=== PATIENT | male | born 1950 | race Caucasian/White ===

== ENCOUNTER 2017-10-01 18:15 | Emergency (ER) | payer BC ==
[2017-10-01] MEDS ORDERED: Aspirin 81 mg CHEW TAB* 81 MG TAB.CHEW PO ONE (18:46)
[2017-10-01] MEDS ORDERED: Metoprolol Tartrate IV* 1 MG/ML 5 ML VIAL IV ONE (18:47)
[2017-10-01 19:07] LABS: ABS Basophils 0.1 10^3/ul (0-0.2); ABS Eosinophils 0.2 10^3/ul (0-0.6); ABS Monocytes 0.7 10^3/ul (0-0.8); ABS Neutrophils 3.6 10^3/ul (1.5-7.7); ABS Nucleated RBC 0 10^3/ul; Eosinophil % 3.1 % (0-6); Hematocrit 46 % (42-52); Hemoglobin 16.2 g/dl (14.0-18.0); Lymphocyte % 30.2 % (25-47); Mean Corpuscular HGB Conc 35 g/dl (31-36); Mean Corpuscular Hemoglobin 31 pg (27-31); Mean Corpuscular Volume 87 fL (80-94); Mean Platelet Volume 7.8 um3 (7.4-10.4); Nucleated Red Blood Cells % 0; Platelet Count 217 10^3/ul (150-450); Red Cell Distribution Width 12 % (10.5-15); White Blood Count 6.5 10^3/ul (3.5-10.8)
[2017-10-01 19:25] LABS: EGFR Non-African American 80.5 (>60)
--- NOTE | 2017-10-01 19:30 | RAD ---
HISTORY: Chest pain COMPARISONS: May 03, 2016 VIEWS: 2: frontal portable view of the chest at 7:03 PM FINDINGS: LINES AND TUBES: None. CARDIOMEDIASTINAL SILHOUETTE: The cardiomediastinal silhouette is normal for portable technique. PLEURA: The costophrenic angles are sharp. No pleural abnormalities are noted. LUNG PARENCHYMA: The lungs are clear. ABDOMEN: The upper abdomen is clear. There is no subphrenic gas. BONES AND SOFT TISSUES: No bone or soft tissue abnormalities are noted. IMPRESSION: NO ACTIVE CARDIOPULMONARY DISEASE.
--- NOTE | 2017-10-01 21:24 | ED ---
Anju Mcclain Emily, scribed for Damian Rivers MD on 10/01/17 at 1845 . 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 Pt reports the CP beginning upon receiving stressful news. The patient rates the pain 0/10 in severity. Symptoms aggravated by nothing. Symptoms alleviated by nothing. Patient reports feeling flushed. Patient denies SOB and palpitations. Pt has a history of IN. - History of Current Complaint Chief Complaint: EDChestPainROMI Time Seen by Provider: 10/01/17 18:31 Hx Obtained From: Patient Onset/Duration: Started Hours Ago, Still Present Timing: Constant Initial Severity: Mild Current Severity: None Pain Intensity: 0 Pain Scale Used: 0-10 Numeric Chest Pain Location: Diffuse Chest Pain Radiates: No Aggravating Factor(s): Nothing Alleviating Factor(s): Nothing Associated Signs and Symptoms: Positive: Other: - Positive feeling flushed. Negative SOB and palpitations - Additional Pertinent History Primary Care Physician: [id number] - Allergy/Home Medications Allergies/Adverse Reactions: Allergies Allergy/AdvReac Type Severity Reaction Status Date / Time No Known Allergies Allergy Verified 05/03/16 08:21 PMH/Surg Hx/FS Hx/Imm Hx Previously Healthy: No Endocrine/Hematology History: Denies: Hx Diabetes, Hx Thyroid Disease Cardiovascular History: Reports: Hx Hypercholesterolemia, Hx Hypertension Respiratory History: Reports: Other Respiratory Problems/Disorders - ex-smoker Denies: Hx Asthma, Hx Chronic Obstructive Pulmonary Disease (COPD) GI History: Reports: Other GI Disorders - bilharzia infection , inguinal hernia repairs Denies: Hx Ulcer Sensory History: Reports: Hx Contacts or Glasses Opthamlomology History: Reports: Hx Contacts or Glasses - Surgical History Surgery Procedure, Year, and Place: 10/29 [facility], 03/05 [facility] inguinal her[place] repair, 12/08 [facility]opsy Infectious Disease History: Yes Infectious Disease History: Reports: History Other Infectious Disease - malaria/ bilharzia infection , bacterial meningitis 1991 Denies: Hx Clostridium Difficile, Hx Hepatitis, Hx Human Immunodeficiency Virus (HIV), Hx of Known/Suspected MRSA, Hx Shingles, Hx Tuberculosis, Traveled Outside the [place] in Last 30 Days - Family History Known Family History: Positive: Diabetes, Other - Positive stroke and [place] - Social History Occupation: Employed Full-time Lives: With Family Alcohol Use: Rare Substance Use Type: Reports: None Hx Tobacco Use: No Smoking Status (MU): Former Smoker Review of Systems Positive: Chest Pain. Negative: Palpitations Negative: Shortness Of Breath Positive: Other - Positive feeling flushed All Other Systems Reviewed And Are Negative: Yes Physical Exam - Summary Physical Exam Summary: Appearance: Well appearing, no pain distress Skin: warm, dry, reflects adequate perfusion Head/face: normal Eyes: EOMI, SHAMEKA ENT: normal Neck: supple, non-tender Respiratory: CTA, breath sounds present Cardiovascular: RRR, pulses symmetrical, blood pressure is slightly elevated Abdomen: non-tender, soft Bowel Sounds: present Musculoskeletal: normal, strength/ROM intact Neuro: normal, sensory motor intact, A&Ox3 Triage Information Reviewed: Yes Vital Signs On Initial Exam: Initial Vitals Temp Pulse Resp BP Pulse Ox 98.4 F 79 20 144/71 98 10/01/17 18:18 10/01/17 18:18 10/01/17 18:18 10/01/17 18:18 10/01/17 18:18 Vital Signs Reviewed: Yes Diagnostics - Vital Signs Vital Signs Temp Pulse Resp BP Pulse Ox 10/01/17 18:18 98.4 F 79 20 144/71 98 - Laboratory Lab Results: Lab Results 10/01/17 10/01/17 10/01/17 Range/Units 18:57 18:57 18:57 WBC 6.5 (3.5-10.8) 10^3/ul RBC 5.30 (4.0-5.4) 10^6/ul Hgb 16.2 (14.0-18.0) g/dl Hct 46 (42-52) % MCV 87 (80-94) fL MCH 31 (27-31) pg MCHC 35 (31-36) g/dl RDW 12 (10.5-15) % Plt Count 217 (150-450) 10^3/ul MPV 7.8 (7.4-10.4) um3 Neut % (Auto) 55.3 (38-83) % Lymph % (Auto) 30.2 (25-47) % Gilliam % (Auto) 10.1 H (0-7) % Eos % (Auto) 3.1 (0-6) % Baso % (Auto) 1.3 (0-2) % Absolute Neuts (auto) 3.6 (1.5-7.7) 10^3/ul Absolute Lymphs (auto) 2.0 (1.0-4.8) 10^3/ul Absolute Monos (auto) 0.7 (0-0.8) 10^3/ul Absolute Eos (auto) 0.2 (0-0.6) 10^3/ul Absolute Basos (auto) 0.1 (0-0.2) 10^3/ul Absolute Nucleated RBC 0 10^3/ul Nucleated RBC % 0 Sodium (139-145) mmol/L Potassium (3.5-5.0) mmol/L Chloride (101-111) mmol/L Carbon Dioxide (22-32) mmol/L Anion Gap (2-11) mmol/L BUN (6-24) mg/dL Creatinine (0.67-1.17) mg/dL Est GFR ( Amer) (>60) Est GFR (Non-Af Amer) (>60) BUN/Creatinine Ratio (8-20) Glucose (70-100) mg/dL Lactic Acid 0.8 (0.5-2.0) mmol/L Calcium (8.6-10.3) mg/dL Total Bilirubin (0.2-1.0) mg/dL AST (13-39) U/L ALT (7-52) U/L Alkaline Phosphatase (34-104) U/L Troponin I (<0.04) ng/mL B-Natriuretic Peptide 12 ( - 100) pg/mL Total Protein (6.4-8.9) g/dL Albumin (3.2-5.2) g/dL Globulin (2-4) g/dL Albumin/Globulin Ratio (1-3) 10/01/17 10/01/17 Range/Units 18:59 20:54 WBC (3.5-10.8) 10^3/ul RBC (4.0-5.4) 10^6/ul Hgb (14.0-18.0) g/dl Hct (42-52) % MCV (80-94) fL MCH (27-31) pg MCHC (31-36) g/dl RDW (10.5-15) % Plt Count (150-450) 10^3/ul MPV (7.4-10.4) um3 Neut % (Auto) (38-83) % Lymph % (Auto) (25-47) % Gilliam % (Auto) (0-7) % Eos % (Auto) (0-6) % Baso % (Auto) (0-2) % Absolute Neuts (auto) (1.5-7.7) 10^3/ul Absolute Lymphs (auto) (1.0-4.8) 10^3/ul Absolute Monos (auto) (0-0.8) 10^3/ul Absolute Eos (auto) (0-0.6) 10^3/ul Absolute Basos (auto) (0-0.2) 10^3/ul Absolute Nucleated RBC 10^3/ul Nucleated RBC % Sodium 137 L (139-145) mmol/L Potassium 3.7 (3.5-5.0) mmol/L Chloride 105 (101-111) mmol/L Carbon Dioxide 24 (22-32) mmol/L Anion Gap 8 (2-11) mmol/L BUN 21 (6-24) mg/dL Creatinine 0.94 (0.67-1.17) mg/dL Est GFR ( Amer) 103.6 (>60) Est GFR (Non-Af Amer) 80.5 (>60) BUN/Creatinine Ratio 22.3 H (8-20) Glucose 130 H (70-100) mg/dL Lactic Acid (0.5-2.0) mmol/L Calcium 9.2 (8.6-10.3) mg/dL Total Bilirubin 0.80 (0.2-1.0) mg/dL AST 10 L (13-39) U/L ALT 18 (7-52) U/L Alkaline Phosphatase 69 (34-104) U/L Troponin I 0.00 0.00 (<0.04) ng/mL B-Natriuretic Peptide ( - 100) pg/mL Total Protein 6.5 (6.4-8.9) g/dL Albumin 4.3 (3.2-5.2) g/dL Globulin 2.2 (2-4) g/dL Albumin/Globulin Ratio 2.0 (1-3) Result Diagrams: 10/01/17 18:57 10/01/17 18:59 Lab Statement: Any lab studies that have been ordered have been reviewed, and results considered in the medical decision making process. - Radiology CXR Radiology Interpretation Completed By: Radiologist - CXR reveals, per radiologist, no active cardiopulmonary disease. ED physician has reviewed this radiology report. - EKG 1825 Cardiac Rate: NL EKG Rhythm: Sinus Rhythm - [address] Segment: Normal EKG Interpretation: Nml axis intervals Re-Evaluation - Re-Evaluation First Eval Re-Evaluation Time: 21:21 Change: Unchanged Comment: Discussed plan of care with patient. Chest Pain Course/Dx - Course Course Of Treatment: Dr. Whittington (sheep farm manager) called ahead for pt and requested 2 troponins at 1545. Troponin 2 has been 0 each time. And has had no recurrence of chest pain. His nitroglycerin was filled. He was discharged to follow-up with his sheep farm manager. - Chest Pain Differential Diagnosis/HQI/PQRI: Acute [place], ACS, Chest Wall, Lower Respiratory Infection, Other: - Anxiety - Diagnoses Provider Diagnoses: Chest pain, Anxiety, Angina at rest Discharge - Sign-Out/Discharge Documenting (check all that apply): Discharge/Admit/Transfer - Discharge home - Discharge Plan Condition: Good Disposition: HOME Prescriptions: Nitroglycerin TAB 0.4 MG* 0.4 mg SL . NEEDED PRN #1 bottle PRN Reason: Angina Patient Education Materials: Angina (DC), Chest Pain (ED) Referrals: David Granados MD [Primary Care Provider] - Marisol Whittington MD [Medical Doctor] - Additional Instructions: Continue all your medications. Nitroglycerin has been filled and your pharmacy. Call your sheep farm manager on Wednesday to follow-up. They may want to do a stress test. Return immediately with chest pain at rest, unremitting chest pain, worse, new symptoms or other concerns as discussed. - Billing Disposition and Condition Condition: GOOD Disposition: HOME The documentation as recorded by the Anju torres Emily accurately reflects the service I personally performed and the decisions made by me, Damian Rivers MD.
[2017-10-01 21:46] VITALS: BP 124/85
== END 2017-10-01 21:47 | disposition home or self-care (01) ==
LOC: ED 18:15
DX: R07.9 Chest pain, unspecified (principal); Z87.891 Personal history of nicotine dependence; F41.9 Anxiety disorder, unspecified; I20.9 Angina pectoris, unspecified
CPT/HCPCS: 36415; 71045; 80053; 83605; 83880; 84484; 85025; 93005; 96374; 99283; A9270-GY; J3490

== ENCOUNTER → 2018-11-10 10:25 | Emergency (ER) | payer BC ==
[~2018-11-10 10:25] MED LIST: Tetan/Diph/Pertus SYR(Tdap)* 0.5 ML SYR(BOOSTRIX) use SYR IM ONE; ceFAZolin 1 GM ADVAN(*) 1 GM in NS 0.9% 50 ML* 50 ML IVPB ONE
--- NOTE | 2018-11-10 10:56 | ED ---
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 Patient states he was working on his boat when his finger got caught in a stiven. Patient unaware of his last tetanus immunization. Brilinta and aspirin daily. Symptoms are mild to moderate in severity. No current modifying factors. Right is pt.'s nondominant hand. - History of Current Complaint Chief Complaint: EDExtremityUpper Stated Complaint: RT INDEX FINGER LAC PER PT Time Seen by Provider: 11/10/18 10:42 - Allergies/Home Medications Allergies/Adverse Reactions: Allergies Allergy/AdvReac Type Severity Reaction Status Date / Time No Known Allergies Allergy Verified 11/10/18 10:35 Home Medications: Home Medications Multivitamins/Minerals TAB* [Theragran/minerals TAB*] 1 tab PO DAILY 11/10/18 [ History Confirmed 11/10/18] Ticagrelor* [Brilinta 90 MG*] 90 mg PO BID 11/10/18 [History Confirmed 11/10/18] PMH/Surg Hx/FS Hx/Imm Hx Previously Healthy: Yes Endocrine/Hematology History: Denies: Hx Diabetes, Hx Thyroid Disease Cardiovascular History: Reports: Hx Hypercholesterolemia, Hx Hypertension Respiratory History: Reports: Other Respiratory Problems/Disorders - ex-smoker Denies: Hx Asthma, Hx Chronic Obstructive Pulmonary Disease (COPD) GI History: Reports: Other GI Disorders - bilharzia infection , inguinal hernia repairs Denies: Hx Ulcer Sensory History: Reports: Hx Contacts or Glasses Opthamlomology History: Reports: Hx Contacts or Glasses - Surgical History Surgery Procedure, Year, and Place[place] [facility] [place], [place] [facility] [place] [facility] [place] Infectious Disease History: No Infectious Disease History: Reports: History Other Infectious Disease - malaria/ bilharzia infection , bacterial meningitis 1991 Denies: Hx Clostridium Difficile, Hx Hepatitis, Hx Human Immunodeficiency Virus (HIV), Hx of Known/Suspected MRSA, Hx Shingles, Hx Tuberculosis, Traveled Outside the [place] in Last 30 Days - Family History Known Family History: Positive: Diabetes, Other - Positive stroke and [place] - Social History Alcohol Use: Rare Substance Use Type: Reports: None Hx Tobacco Use: No Smoking Status (MU): Former Smoker Review of Systems Positive: Other - distal amputation 2nd digit right hand. Positive: Numbness All Other Systems Reviewed And Are Negative: Yes Physical Exam Triage Information Reviewed: Yes Vital Signs On Initial Exam: Initial Vitals Temp Pulse Resp BP Pulse Ox 98.1 F 97 20 128/85 94 11/10/18 10:30 11/10/18 10:30 11/10/18 10:30 11/10/18 10:30 11/10/18 10:30 Vital Signs Reviewed: Yes Appearance: Positive: Well-Appearing - Pt. sitting up in bed in NAD. Family present. Skin: Positive: Warm, Dry Eyes: Positive: Normal, EOMI, SHAMEKA Neck: Positive: Supple Musculoskeletal: Positive: Other - Amputation noted to right 2nd digit just distal to the DIP joint. Mild active bleeding. Tissue is very macerated. Bone is exposed. Neurological: Positive: Normal, CN Intact II-III Psychiatric: Positive: Affect/Mood Appropriate Diagnostics - Vital Signs Vital Signs Temp Pulse Resp BP Pulse Ox 11/10/18 10:30 98.1 F 97 20 128/85 94 - Laboratory Lab Statement: Any lab studies that have been ordered have been reviewed, and results considered in the medical decision making process. Course/Dx - Course Course Of Treatment: Patient presenting with traumatic amputation of right second digit of hand. Wound is dirty. Wound was irrigated and soaked in Betadine solution. Tetanus is updated. Patient was given 1 g IV Ancef prophylactically. Finger x-ray shows ambutation just distally to the DIP joint. Patient declines pain medication or digital block. Case discussed with on-call orthopedics, Dr. Linares, who agrees with current management and recommends outpatient follow-up with hand. I called and spoke with orthopedic clinic and Dr. Arechiga will see pt. in office at 1300 today for definitive treatment. Wound was extensively irrigated. Wound Mildly bleeding and Gelfoam was placed with a pressure dressing with hemostasis. Patient discharged with his to follow-up in orthopedic clinic at 1300. Prescription was sent for Keflex. Patient understands and agrees plan. - Diagnoses Differential Diagnosis/HQI/PQRI: Positive: Fracture (Open) Provider Diagnoses: Finger amputation, traumatic Discharge - Sign-Out/Discharge Documenting (check all that apply): Patient Departure Patient Received Moderate/Deep Sedation with Procedure: No - Discharge Plan Condition: Good Disposition: HOME Prescriptions: Cephalexin CAP* [Keflex CAP*] 500 mg PO BID #20 cap Patient Education Materials: Finger Amputation (ED) Referrals: Chau Keller MD [Medical Doctor] - Additional Instructions: Dr. Keller will see you in the orthopedic office today, 11/10/18, at 1:00pm - Billing Disposition and Condition Condition: GOOD Disposition: Home
[2018-11-10 12:34] VITALS: BP 133/87
== END | disposition home or self-care (01) ==
LOC: ED 10:25
DX: S68.110A Complete traumatic metacarpophalangeal amputation of right index finger, initial encounter (principal); W24.0XXA Contact with lifting devices, not elsewhere classified, initial encounter; Y92.9 Unspecified place or not applicable; Z23 Encounter for immunization; Z79.02 Long term (current) use of antithrombotics/antiplatelets; Z79.82 Long term (current) use of aspirin; Z87.891 Personal history of nicotine dependence
CPT/HCPCS: 73140; 90471; 90715; 96365; 99282; J0690

== ENCOUNTER 2018-11-10 17:29 | Emergency (ER) | payer BC ==
--- OUTSIDE RECORDS SUMMARY | 2018-11-10 18:21 | XMS REPORT | Continuity of Care Document ---
:1950 External Reference #:[id number] Author Name Sanaz Cordova Care Team Providers Name Role Phone Ana Lenz M.D. Primary Care Physician Unavailable Payers Date Identification Numbers Payment Provider Subscriber Effective: 2012 Policy Number: [id number] BS [employer]ets Esperanza Sears PayID: [id number] [facility] [address] HERI Thomas [address] Effective: 2010 Policy Number: [id number] BS Of KATRINA Sears Expires: 2012 PayID: [id number] [facility] HERI Thomas [address] Expires: 2010 Policy Number: [id number] BS Of KATRINA Sears Group Number: [id number] [facility] [place]ID: [id number] [place] [address] Problems Active Problems Provider Date Type II diabetes mellitus uncontrolled David Granados, Onset: 04/05/2007 Candie,HORTENCIA Pure hypercholesterolemia David Granados, Onset: 07/07/2010 Candie,GREGGP Obstructive sleep apnea syndrome David Granados, Onset: 10/19/2012 CandieFACP H/O: meningitis David Granados, Onset: 11/07/2014 Candie,FACP Coronary arteriosclerosis David Granados, Onset: 05/12/2016 Candie,FACP Essential hypertension Juan Hyde M.D., FACC, Onset: 05/13/2016 [facility] Electrocardiogram abnormal Marisol Whittington M.D. Onset: 10/01/2017 Atherosclerotic heart disease of [place] Marisol Whittington M.D. Onset: 10/01/2017 coronary artery with unspecified angina pectoris Mixed hyperlipidemia Marisol Whittington M.D. 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 Keller MD Onset: 11/10/2018 complication Inactive Problems Hyperlipidemia Juan Hyde M.D., [facility] Onset: 05/13/2016 Inactive: 12/07/2016 Family History Date Family Member(s) Observation Comments Father Diabetes, Non Insulin Dependent : (age 75 Father due to [place] Years) Father Stroke Mother due to Cancer, () - melanoma Skin Siblings 2 First Brother Stroke First Brother Heart Disease Maternal Uncles Heart Disease Social History Type Date Description Comments Sex Unknown Marital Status 4 Kids Marital Status Lives With Family 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 Tobacco Use Start: Unknown End: Former Cigarette Smoker Unknown Cigarette Use Quit - Age 32 after 8 yrs ETOH Use 07/01/2017 Rarely consumes alcohol Recreational Drug Use Denies Drug Use Tobacco Use Start: Unknown End: Patient is a former smoker Unknown Smoking Status Reviewed: 11/10/18 Patient is a former smoker Exercise Type/Frequency Exercises regularly Allergies, Adverse Reactions, Alerts Description No Known Drug Allergies Medications Active Medications SIG Qnty Indications Ordering Date Provider Oxycodone-Acetaminop 1 tab by mouth every 20tabs Chau Keller, 11/10/2018 hen 4-6 hours as needed 5-325mg Tablets pain Shingrix 0.5 milliliters 2units David Gutierrez 12/15/2017 50mcg intramuscular now [place], Suspension Rec and 2-3 months later GREGG SchreiberP repeat Amlodipine Besylate 1 by mouth every day 90tabs Marisol Whittington, 10/27/2017 MLibertyDLiberty 5mg Tablets Brilinta 1 tab by mouth twice 180tabs Marisol Whittington, 06/01/2017 60mg Tablets a day M.DLiberty Atorvastatin Calcium take 1 tablet at 90tabs Marisol Whittington, 12/07/2016 bedtime M.Matt 40mg Tablets Naproxen Sodium 1 as needed David Gutierrez 08/19/2016 220mg [place], Tablets M.D.,FACP Onetouch Verio 1 kit as directed 1units David Gutierrez 05/12/2016 [place], w/Device Kit M.D.,FACP Onetouch Verio test twice a day as 100units E11.8 David Gutierrez 05/12/2016 needed [place], Strips M.DLiberty,FACP Lancets Super Thin bid prn 100units David Gutierrez 05/12/2016 28G [place], Thin 28G Misc M.D.,FACP Metoprolol Succinate take one tablet by 30tabs Ana Lenz, 05/05/2016 ER mouth once daily as MD 25mg Tablets ER directed 24HR Janumet take one tablet by 60tabs E11.65 Ana Lenz, 05/05/2016 50-500mg mouth twice a day MD Tablets Nitroglycerin 1 sl q5mins x3 as Marisol Whittington, 05/05/2016 0.4mg needed for chest M.D. Tablets Sub pain (esophageal) Multivitamin Adult 1 by mouth every day 90tabs Other Ordering 05/05/2016 Provider Tablets Invokana Take One Tablet By 90tabs Ana Lenz, 08/09/2013 100mg Mouth Once Daily MD Tablets Cpap auto-adjust, goes to David Gutierrez 05/29/2013 8 cm Candie Granados,FACP Aspirin 1 po qd E11.65 David Gutierrez 08/31/2008 81mg Tablets Candie Granados,FACP Vitamin C 1 by mouth every day Unknown 1000mg Tablets History Medications Amlodipine Besylate 1 by mouth every 30tabs Curtis Dietz 09/16/2016 - day Candie Reyes 10/26/2017 2.5mg Tablets Lisinopril 1 by mouth every 30tabs E11.65 David Gutierrez 05/05/2016 - 5mg Tablets evening Candie Granados,FACP 05/12/2016 Brilinta 1 tab by mouth 180tabs Marisol Whittington, 05/05/2016 - 90mg Tablets twice a day M.D. 06/01/2017 Atorvastatin Calcium take one tablet 90tabs David Gutierrez 05/05/2016 - by mouth once Candie Granados,[facility] 12/07/2016 80mg Tablets daily Janumet take one tablet 180tabs E11.65 David Gutierrez 09/17/2015 - 50-1000mg by mouth twice a Candie Granados,[facility] 05/08/2016 Tablets day Amoxicillin 1 by mouth twice 14tabs J06.9 [place] Mojica, HORACE 04/23/2015 - 875mg a day 06/18/2015 Tablets Viagra 1 by mouth as 14tabs N52.1 David Gutierrez 11/07/2014 - 50mg Tablets needed Candie Granados,[facility] 05/08/2016 Lisinopril take one tablet 90tabs E11.65 David Gutierrez 03/22/2014 - 10mg Tablets by mouth once Candie Granados,[facility] 05/08/2016 daily Metoprolol Succinate 1 by mouth every 30tabs 794.39 Marisol Whittington, 2013 - ER day Candie 03/22/2014 25mg Tablets ER 24HR Lisinopril Take One Tablet 90tabs 250.02 David Gutierrez 05/29/2013 - 5mg Tablets By Mouth Once Candie Granados,[facility] 03/22/2014 Daily Cheratussin ac 5-10 ml po q4-6h 236ml 466.0 Jocelyn Del Angel, 06/14/2012 - prn N.P. 10/19/2012 100-10mg/5ML Syrup Ventolin HFA 2 puffs po qid 1units 466.0 Jocelyn Del Angel, 06/14/2012 - prn N.P. 10/19/2012 108(90Base) mcg/ac Aerosol Tessalon Perles 100 mg po tid prn 100mg 466.0 Jocelyn Del Angel, 06/14/2012 - 100mg N.P. 10/19/2012 Capsules Ramipril 1 po qd 30caps 401.1 David Gutierrez 04/14/2012 - 2.5mg Capsules Candie Granados,[facility] 10/19/2012 Janumet XR take two tablets 180tabs E11.65 David Gutierrez 10/09/2011 - 50-1000mg by mouth every Candie Granados,[facility] 09/17/2015 Tablets ER 24HR day Janumet 1 po qd (Janumet 30tabs 250.02 David Gutierrez 07/10/2011 - 50-1000mg XR) Candie Granados,[facility] 10/09/2011 Tablets Prednisone 6 tabx 42tabs 692.6 [place] 10/01/2010 - 10mg Tablets 2days,5tabx Candie Zayas 12/19/2010 2days,4 [id number],2tabx2 days,1tabxday. Fortamet take 1 tablet by 90tabs 250.02 David Gutierrez 09/03/2010 - 1000mg Tablets mouth once a day Candie Granados,[facility] 07/10/2011 ER 24HR Ciprodex otic 1bottle 380.22 David Gutierrez 09/03/2010 - 0.3-0.1% 4 ggt r ear bid Candie Granados,[facility] 12/19/2010 Suspension for 1 wk Metformin 1 po bid 60units 250.02 David Gutierrez 06/05/2010 - 500mg Candie Granados,[facility] 09/03/2010 Ciprofloxacin HCL 1 bid x 7 days 14tabs 599.0 David Gutierrez 06/05/2010 - 250mg Candie Granados,[facility] 07/07/2010 Tablets Nystatin topically bid prn 30g 599.0 David Gutierrez 06/05/2010 - [id number]/GM Candie Granados,[facility] 07/07/2010 Cream Red Contour Blood qd and prn 50units David Gutierrez 06/05/2010 - Glucose Test Strips Candie Granados,[facility] 05/12/2016 Strips Red Microlet qd prn 50units David Gutierrez 06/05/2010 - Lancets Candie Granados,[facility] 05/12/2016 Mis Asmanex 14 Metered qd samples 1month 786.2 David Gutierrez 11/01/2009 - Doses [facility] 12/18/2009 220mcg/Inh Aerosol Ambien prn rarely David Gutierrez 04/05/2007 - 5mg Tablets Candie Granados,FACP 10/09/2011 Cinnamon 4 po qd Unknown - 500mg Capsules 05/08/2016 Vitamin C 3 po qd Unknown - 500mg 11/09/2013 Chewtabs Calcium 1200 1 daily Unknown - Chewtabs 05/31/2017 Influenza Virus Unknown Vaccine Injection Medications Administered in Office Medication SIG Qnty Indications Ordering Provider Date Technetium TC 99M Dez Brooks, DO FACC 09/08/2016 Tetrofosmin, Per Unit Dose Up To 40 Millicuries Injection Immunizations CPT Code Status Date Vaccine Reaction Lot # [id number] Given 07/01/2017 Pneumonia Vaccine no reaction [id number] Given 03/01/2017 Fluzone High Dose 77425 Given 02/29/2016 Influ Virus Vaccine, Quadrivalent, [place], [place] [id number] Given 02/28/2015 Flu Vaccine Split Virus Preservative Free For Indiv 3Yr Older [id number] Given 11/07/2014 Pneumococcal Conjugate Vaccine 13 [id number] Valent For Intramuscular Use [id number] Given 03/07/2014 Afluria Vaccine [id number] Given 03/09/2013 Flu Vaccine Split Virus Preservative Free For Indiv 3Yr Older [id number] Given 04/14/2012 Fluvirin Im 3Yrs And Older [id number] 62418 Given 04/14/2012 Zoster (Zostavax) [id number] 64150 Given 07/10/2011 Influenza Virus 3Yrs & Over [id number] 70156 Given 12/19/2010 Pneumonia Vaccine [id number] 52774 Given 12/19/2010 Tdap - Tetanus/Diptheria/Acellular [id number] Pertussis 54875 Given 06/05/2010 Influenza Virus 3Yrs & Over [id number] 14914 Given 04/05/2007 Influenza Virus 3Yrs & Over [id number] Vital Signs Date Vital Result Comment 11/10/2018 1:17pm Height 72 inches 6'0" Heart Rate 91 /min BP Systolic 130 mmHg BP Diastolic 70 mmHg Body Temperature 98.2 F Pain Level 8 08/11/2018 3:35pm Height 72 inches 6'0" Weight 210.00 lb no shoes Heart Rate 76 /min BP Systolic Sitting 110 mmHg lue reg cuff BP Diastolic Sitting 64 mmHg lue reg cuff BP Systolic Standing 112 mmHg lue reg cuff BP Diastolic Standing 64 mmHg lue reg cuff Respiratory Rate 18 /min BMI (Body Mass Index) 28.5 kg/m2 Ejection Fraction 55-60% echo. 05/03/16 07/04/2018 10:02am Height 72 inches 6'0" Weight 213.12 lb Heart Rate 71 /min BP Systolic Sitting 122 mmHg large adult cuff left arm BP Diastolic Sitting 78 mmHg large adult cuff left arm Respiratory Rate 20 /min O2 % BldC Oximetry 95 % at rest on room air BMI (Body Mass Index) 28.9 kg/m2 12/15/2017 10:08am Height 72 inches 6'0" Weight 204.38 lb Heart Rate 78 /min BP Systolic Sitting 120 mmHg BP Diastolic Sitting 78 mmHg Body Temperature 97.4 F O2 % BldC Oximetry 98 % BMI (Body Mass Index) 27.7 kg/m2 10/01/2017 4:24pm Height 72 inches 6'0" Weight 208.00 lb w/o shoes Heart Rate 86 /min BP Systolic Sitting 156 mmHg Lue, reg cuff BP Diastolic Sitting 80 mmHg Lue, reg cuff BP Systolic Standing 148 mmHg Lue BP Diastolic Standing 86 mmHg Lue Respiratory Rate 16 /min Pain Level 4 BMI (Body Mass Index) 28.2 kg/m2 Ejection Fraction 55-60% as of 2015 echo 07/01/2017 11:21am Height 72 inches 6'0" Weight 206.00 lb Heart Rate 81 /min BP Systolic Sitting 120 mmHg BP Diastolic Sitting 58 mmHg Body Temperature 97.0 F O2 % BldC Oximetry 96 % BMI (Body Mass Index) 27.9 kg/m2 06/01/2017 11:13am Height 73 inches 6'1" Weight 210.75 lb Heart Rate 68 /min BP Systolic Sitting 124 mmHg Lue large cuff BP Diastolic Sitting 72 mmHg Lue large cuff BP Systolic Standing 118 mmHg Lue BP Diastolic Standing 70 mmHg Lue Respiratory Rate 16 /min BMI (Body Mass Index) 27.8 kg/m2 Ejection Fraction 55-60% 05/03/16 01/15/2017 3:27pm Height 73 inches 6'1" Weight 209.00 lb Heart Rate 67 /min BP Systolic 126 mmHg BP Diastolic 74 mmHg Body Temperature 97.7 F O2 % BldC Oximetry 96 % BMI (Body Mass Index) 27.6 kg/m2 12/17/2016 1:23pm Height 73 inches 6'1" Weight 203.00 lb no shoes Heart Rate 74 /min BP Systolic Sitting 116 mmHg Lue reg cuff BP Diastolic Sitting 72 mmHg Lue reg cuff BP Systolic Standing 110 mmHg Lue reg cuff BP Diastolic Standing 70 mmHg Lue reg cuff Respiratory Rate 16 /min BMI (Body Mass Index) 26.8 kg/m2 12/07/2016 1:32pm Weight 210.00 lb Heart Rate 80 /min BP Systolic 124 mmHg BP Diastolic 60 mmHg Body Temperature 97.8 F O2 % BldC Oximetry 98 % 10/13/2016 3:26pm Weight 204.00 lb with shoes Heart Rate 76 /min BP Systolic Sitting 118 mmHg Rue reg cuff BP Diastolic Sitting 70 mmHg Rue reg cuff BP Systolic Standing 126 mmHg Rue reg cuff BP Diastolic Standing 70 mmHg Rue reg cuff Respiratory Rate 16 /min 08/18/2016 2:42pm Weight 203.00 lb Heart Rate 65 /min BP Systolic Sitting 108 mmHg BP Diastolic Sitting 68 mmHg Body Temperature 97.9 F Pain Level 8 L shoulder O2 % BldC Oximetry 95 % 06/19/2016 3:58pm Height 73 inches 6'1" Weight 204.00 lb no shoes Heart Rate 72 /min BP Systolic Sitting 126 mmHg Lue reg cuff BP Diastolic Sitting 76 mmHg Lue reg cuff BP Systolic Standing 124 mmHg Lue reg cuff BP Diastolic Standing 80 mmHg Lue reg cuff Respiratory Rate 16 /min BMI (Body Mass Index) 26.9 kg/m2 Ejection Fraction 55-60% 05/03/2016 05/13/2016 1:35pm Height 73 inches 6'1" Weight 208.00 lb Heart Rate 80 /min 86 BP Systolic Sitting 120 mmHg left arm, reg cuff BP Diastolic Sitting 66 mmHg left arm, reg cuff BP Systolic Standing 116 mmHg left arm, reg cuff BP Diastolic Standing 66 mmHg left arm, reg cuff Respiratory Rate 16 /min BMI (Body Mass Index) 27.4 kg/m2 Ejection Fraction 55-60% 05/03/16 05/12/2016 3:56pm Weight 208.00 lb with shoes Heart Rate 78 /min BP Systolic Sitting 122 mmHg BP Diastolic Sitting 72 mmHg O2 % BldC Oximetry 98 % 01/07/2016 1:29pm Height 73 inches 6'1" Weight 208.00 lb Heart Rate 88 /min BP Systolic Sitting 124 mmHg BP Diastolic Sitting 68 mmHg Respiratory Rate 15 /min Body Temperature 97.0 F O2 % BldC Oximetry 98 % BMI (Body Mass Index) 27.4 kg/m2 09/17/2015 8:30am Height 73 inches 6'1" Weight 211.00 lb Heart Rate 78 /min BP Systolic Sitting 130 mmHg BP Diastolic Sitting 70 mmHg Respiratory Rate 15 /min Body Temperature 97.1 F O2 % BldC Oximetry 98 % BMI (Body Mass Index) 27.8 kg/m2 06/18/2015 8:10am Height 73 inches 6'1" Weight 213.00 lb Heart Rate 88 /min BP Systolic Sitting 124 mmHg BP Diastolic Sitting 76 mmHg Respiratory Rate 14 /min Body Temperature 98.0 F O2 % BldC Oximetry 98 % BMI (Body Mass Index) 28.1 kg/m2 04/23/2015 11:43am Height 73 inches 6'1" Weight 208.00 lb Heart Rate 77 /min BP Systolic 122 mmHg BP Diastolic 78 mmHg Body Temperature 9.7 F O2 % BldC Oximetry 98 % BMI (Body Mass Index) 27.4 kg/m2 04/23/2015 11:28am Height 73 inches 6'1" 11/07/2014 8:50am Height 73 inches 6'1" Weight 210.62 lb Heart Rate 80 /min BP Systolic Sitting 125 mmHg BP Diastolic Sitting 68 mmHg Body Temperature 97.2 F O2 % BldC Oximetry 97 % BMI (Body Mass Index) 27.8 kg/m2 03/22/2014 4:08pm Height 73 inches 6'1" Weight 210.00 lb Heart Rate 74 /min BP Systolic Sitting 120 mmHg BP Diastolic Sitting 78 mmHg Body Temperature 96.0 F O2 % BldC Oximetry 95 % BMI (Body Mass Index) 27.7 kg/m2 01/16/2014 1:35pm Height 73 inches 6'1" Weight 212.00 lb Heart Rate 78 /min BP Systolic Sitting 152 mmHg left arm, reg cuff BP Diastolic Sitting 70 mmHg left arm, reg cuff BP Systolic Standing 138 mmHg left arm, reg cuff BP Diastolic Standing 68 mmHg left arm, reg cuff Respiratory Rate 16 /min BMI (Body Mass Index) 28.0 kg/m2 11/09/2013 8:38am Weight 207.00 lb Heart Rate 82 /min BP Systolic Sitting 125 mmHg BP Diastolic Sitting 80 mmHg Body Temperature 98.1 F 08/09/2013 8:39am Height 73 inches 6'1" Weight 213.50 lb Heart Rate 88 /min BP Systolic Sitting 135 mmHg BP Diastolic Sitting 78 mmHg Body Temperature 97.8 F BMI (Body Mass Index) 28.2 kg/m2 05/29/2013 8:42am Height 73 inches 6'1" Weight 219.00 lb Heart Rate 88 /min BP Systolic Sitting 144 mmHg BP Diastolic Sitting 78 mmHg BMI (Body Mass Index) 28.9 kg/m2 10/19/2012 3:17pm Height 73 inches 6'1" Weight 217.50 lb Heart Rate 94 /min BP Systolic Sitting 128 mmHg BP Diastolic Sitting 64 mmHg BMI (Body Mass Index) 28.7 kg/m2 06/14/2012 4:00pm Height 73 inches 6'1" Weight 217.00 lb Heart Rate 90 /min BP Systolic Sitting 164 mmHg BP Diastolic Sitting 90 mmHg Body Temperature 98.1 F O2 % BldC Oximetry 98 % BMI (Body Mass Index) 28.6 kg/m2 04/14/2012 9:28am Height 73 inches 6'1" Weight 216.00 lb Heart Rate 82 /min BP Systolic Sitting 138 mmHg BP Diastolic Sitting 82 mmHg BMI (Body Mass Index) 28.5 kg/m2 10/09/2011 10:00am Height 73 inches 6'1" Weight 217.00 lb Heart Rate 68 /min BP Systolic Sitting 130 mmHg BP Diastolic Sitting 76 mmHg BMI (Body Mass Index) 28.6 kg/m2 07/10/2011 10:35am Height 73 inches 6'1" Weight 219.00 lb Heart Rate 72 /min BP Systolic Sitting 120 mmHg L BP Diastolic Sitting 78 mmHg L BMI (Body Mass Index) 28.9 kg/m2 12/19/2010 9:26am Height 73 inches 6'1" Weight 214.00 lb Heart Rate 78 /min BP Systolic Sitting 122 mmHg BP Diastolic Sitting 78 mmHg BMI (Body Mass Index) 28.2 kg/m2 10/01/2010 3:52pm Weight 218.00 lb Heart Rate 76 /min BP Systolic Sitting 124 mmHg BP Diastolic Sitting 88 mmHg 09/03/2010 8:46am Weight 219.00 lb Heart Rate 96 /min BP Systolic Sitting 140 mmHg BP Diastolic Sitting 70 mmHg 07/07/2010 8:37am Weight 222.00 lb Heart Rate 84 /min BP Systolic Sitting 128 mmHg BP Diastolic Sitting 68 mmHg 06/05/2010 4:20pm Weight 219.00 lb Heart Rate 68 /min BP Systolic 136 mmHg BP Diastolic 80 mmHg Body Temperature 97.1 F 12/18/2009 2:19pm Weight 221.00 lb Heart Rate 90 /min BP Systolic Sitting 135 mmHg BP Diastolic Sitting 82 mmHg 11/01/2009 2:09pm Weight 218.00 lb Heart Rate 94 /min BP Systolic Sitting 170 mmHg BP Diastolic Sitting 94 mmHg Body Temperature 97.6 F 08/31/2008 3:05pm Weight 220.00 lb Heart Rate 80 /min BP Systolic Sitting 134 mmHg BP Diastolic Sitting 78 mmHg 04/05/2007 3:26pm Height 71 inches 5'11" Weight 215.00 lb Heart Rate 74 /min BP Systolic Sitting 115 mmHg BP Diastolic Sitting 76 mmHg BMI (Body Mass Index) 30.0 kg/m2 Results Test Date Facility Test Result H/L Range Note Urine Microalbumin 08/10/2018 [facility] Ur Microalbumin 16.1 Random (mg/L) [place] [address] [phone] Urine Creatinine 121.75 mg/dL Urine Microalbumin/Creatinine 13.2 N <31 Basic Metabolic Panel 08/10/2018 [facility] Sodium 137 mmol/L N 135-[address] [place] [address] [phone] Potassium 4.4 mmol/L N 3.5-5.0 Chloride 104 mmol/L N 101-111 Co2 Carbon Dioxide 28 mmol/L N 22-32 Anion Gap 5 mmol/L N 2-11 Glucose 264 mg/dL High 70-100 Blood Urea Nitrogen 19 mg/dL N 6-24 Creatinine 0.83 mg/dL N 0.67-1.17 BUN/Creatinine Ratio 22.9 High 8-20 Calcium 9.1 mg/dL N 8.6-10.3 Egfr Non- 92.7 >60 Egfr 112.2 >60 1 Lipid Profile 08/10/2018 [facility] Triglycerides 76 mg/dL 2 (Trig/Chol/HDL) [address] [place] [address] [phone] Cholesterol 95 mg/dL 3 HDL Cholesterol 39.6 mg/dL 4 LDL Cholesterol 40 mg/dL 5 Liver Function 08/10/2018 [facility] Total Protein 6.1 g/dL Low 6.4-8.[address] [place] [address] [phone] Albumin 4.3 g/dL N 3.2-5.2 Globulin 1.8 g/dL Low 2-4 Albumin/Globulin Ratio 2.4 N 1-3 Total Bilirubin 0.90 mg/dL N 0.2-1.0 Direct Bilirubin 0.20 mg/dL High 0.03-0.18 Indirect Bilirubin 0.7 mg/dL N 0.3-1.0 Alkaline Phosphatase 81 U/L N 34-104 Alt 18 U/L N 7-52 Ast 10 U/L Low 13-39 Laboratory test 07/04/2018 [facility] Hemoglobin A1c 8.3 High 5-7 finding Basic Metabolic 10/26/2017 [facility] Sodium 140 mmol/L N 139- [address] [place] [address] [phone] Potassium 4.4 mmol/L N 3.5-5.0 Chloride 109 mmol/L N 101-111 Co2 Carbon Dioxide 24 mmol/L N 22-32 Anion Gap 7 mmol/L N 2-11 Glucose 142 mg/dL High 70-100 Blood Urea Nitrogen 21 mg/dL N 6-24 Creatinine 0.96 mg/dL N 0.67-1.17 BUN/Creatinine Ratio 21.9 High 8-20 Calcium 9.0 mg/dL N 8.6-10.3 Egfr Non- 78.6 >60 Egfr 101.1 >60 6 Laboratory test finding 10/26/2017 [facility] Ast (Sgot) 13 U/L N 13-[address] [place] [address] [phone] Creatine Kinase(CK) 136 U/L N 10-223 CRP High Sensitivity 1.12 mg/L 7 Lipid Profile 10/26/2017 [facility] Triglycerides 50 mg/dL 8 (Trig/Chol/HDL) [address] [place] [address] [phone] Cholesterol 86 mg/dL 9 HDL Cholesterol 36.0 mg/dL 10 LDL Cholesterol 40 mg/dL 11 Urine Microalbumin 10/26/2017 [facility] Ur Microalbumin < 15.[address] (mg/L) mg/[place] [address] [phone] Urine Creatinine 139.50 mg/dL Urine Microalbumin/Creatinine TNP ug/mg <31 12 Laboratory test 10/26/2017 [facility] Hemoglobin A1c 6.9 % High 4.0-5.6 [address] (Glyco HGB) [place] [address] [phone] Laboratory test 10/01/2017 [facility] Troponin-I 0.00 <0.[address] (TnI) ng/[place] [address] [phone] Laboratory test 07/01/2017 [facility] Hemoglobin A1c 7.0 5-7 finding CBC Auto Diff 12/07/2016 [facility] White Blood 7.7 N 3.5- 10.[address] Count 10^3/[place] [address] [phone] Red Blood Count 5.51 10^6/uL High 4.0-5.4 Hemoglobin 17.2 g/dL N 14.0-18.0 Hematocrit 49 % N 42-52 Mean Corpuscular Volume 90 fL N 80-94 Mean Corpuscular Hemoglobin 31 pg N 27-31 Mean Corpuscular HGB Conc 35 g/dL N 31-36 Red Cell Distribution Width 12 % N 10.5-15 Platelet Count 217 10^3/uL N 150-450 Mean Platelet Volume 9 um3 N 7.4-10.4 Abs Neutrophils 4.7 10^3/uL N 1.5-7.7 Abs Lymphocytes 2.0 10^3/uL N 1.0-4.8 Abs Monocytes 0.7 10^3/uL N 0-0.8 Abs Eosinophils 0.2 10^3/uL N 0-0.6 Abs Basophils 0 10^3/uL N 0-0.2 Abs Nucleated RBC 0 10^3/uL N Granulocyte % 61.1 % N 38-83 Lymphocyte % 26.1 % N 25-47 Monocyte % 9.0 % N 1-9 Eosinophil % 3.2 % N 0-6 Basophil % 0.6 % N 0-2 Nucleated Red Blood Cells % 0.1 N Laboratory test 12/07/2016 [facility] D Dimer < 200 N Less [address] Quantitative ng/mL Than [address] [place] [address] [phone] Basic Metabolic 12/07/2016 [facility] Sodium 136 mmol/L N 133- 145 Panel [address] [place] [address] [phone] Potassium 4.0 mmol/L N 3.5-5.0 Chloride 102 mmol/L N 101-111 Co2 Carbon Dioxide 25 mmol/L N 22-32 Anion Gap 9 mmol/L N 2-11 Glucose 186 mg/dL High 70-100 Blood Urea Nitrogen 25 mg/dL High 6-24 Creatinine 0.95 mg/dL N 0.67-1.17 BUN/Creatinine Ratio 26.3 High 8-20 Calcium 9.7 mg/dL N 8.6-10.3 Egfr Non- 79.8 N >60 Egfr 102.6 N >60 15 Laboratory test 12/07/2016 [facility] C Reactive 1.82 mg/L N < 5.00 16 finding [address] [facility] [place] [address] [phone] Hemoglobin A1c (Glyco HGB) 6.7 % High Less than 6.0 17 Lipid Profile 10/09/2016 [facility] Triglycerides 67 mg/dL N 18 (Trig/Chol/HDL) [address] [place] [address] [phone] Cholesterol 89 mg/dL N 19 HDL Cholesterol 39.7 mg/dL N 20 LDL Cholesterol 36 mg/dL N 21 Laboratory test finding 10/09/2016 [facility] Alt (SGPT) 30 U/L N 7-52 22 [address] [place] [address] [phone] Ast (Sgot) 18 U/L N 13-39 23 Laboratory test 08/18/2016 [facility] Hemoglobin A1c 6.3 5-7 finding Basic Metabolic 08/11/2016 [facility] Sodium 138 mmol/L N 133- 145 Panel [address] [place] [address] [phone] Potassium 4.1 mmol/L N 3.5-5.0 Chloride 104 mmol/L N 101-111 Co2 Carbon Dioxide 27 mmol/L N 22-32 Anion Gap 7 mmol/L N 2-11 Glucose 152 mg/dL High 70-100 Blood Urea Nitrogen 20 mg/dL N 6-24 Creatinine 0.91 mg/dL N 0.67-1.17 BUN/Creatinine Ratio 22.0 High 8-20 Calcium 9.3 mg/dL N 8.6-10.3 Egfr Non- 83.9 N >60 Egfr 107.9 N >60 24 Urine Microalbumin 08/11/2016 [facility] Urine Creatinine 132.26 mg/dL N Random [address] [place] [address] [phone] Ur Microalbumin (mg/L) 17.2 mg/L N Urine Microalbumin/Creatinine 13.0 ug/mg N <31 Laboratory test 05/12/2016 [facility] Hemoglobin A1c 7.4 High 5-7 finding Laboratory test 01/07/2016 [facility] Hemoglobin A1c 7.0 5-7 finding Laboratory test 09/17/2015 [facility] Hemoglobin A1c 7.2 High 5-7 finding Laboratory test 06/18/2015 [facility] Hemoglobin A1c 7.9 High 5-7 finding Laboratory test 02/27/2015 [facility] Hemoglobin A1c 9.0 % High Less than [address] (Glyco HGB) 6.0 [place] [address] [phone] Basic Metabolic 02/27/2015 [facility] Sodium 131 Low 133-[address] mmol/[place] [address] [phone] Potassium 4.8 mmol/L N 3.5-5.0 Chloride 98 mmol/L Low 101-111 Co2 Carbon Dioxide 27 mmol/L N 22-32 Anion Gap 6 mmol/L N 2-11 Glucose 225 mg/dL High 70-100 Blood Urea Nitrogen 21 mg/dL N 6-24 Creatinine 0.93 mg/dL N 0.67-1.17 BUN/Creatinine Ratio 22.6 High 8-20 Calcium 9.6 mg/dL N 8.6-10.3 Egfr Non- 82.1 N >60 Egfr 105.5 N >60 26 Lipid Profile 02/27/2015 [facility] Triglycerides 86 mg/dL N 27 (Trig/Chol/HDL) [address] [place] [address] [phone] Cholesterol 157 mg/dL N 28 HDL Cholesterol 40.1 mg/dL N 29 LDL Cholesterol 100 mg/dL N 30 Urine Microalbumin 11/07/2014 [facility] Ur Microalbumin < 5.0 mg/L N Random [address] (mg/L) [place] [address] [phone] Urine Creatinine 53.97 mg/dL N Urine Microalbumin/Creatinine TNP ug/mg N <31 31 Laboratory test 11/07/2014 [facility] Hemoglobin A1c 7.6 High 5-7 finding Laboratory test 03/22/2014 [facility] Hemoglobin A1c 7.2 High 5-7 finding Pre Cath Panel 01/05/2014 [facility] Activated 28.4 seconds N 24.0-36.[address] [place] [address] Time [phone] Basic Metabolic 01/05/2014 [facility] Sodium 135 mmol/L N 133- [address] [place] [address] [phone] Potassium 4.4 mmol/L N 3.7-5.6 Chloride 102 mmol/L N 101-111 Co2 Carbon Dioxide 24 mmol/L N 22-32 Anion Gap 9 mmol/L N 2-11 Glucose 212 mg/dL High 70-100 Blood Urea Nitrogen 24 mg/dL N 6-24 Creatinine 0.96 mg/dL N 0.67-1.17 BUN/Creatinine Ratio 25.0 High 8-20 Calcium 9.5 mg/dL N 8.6-10.3 Egfr Non- 79.6 N >60 Egfr 102.4 N >60 32 CBC Auto Diff 01/05/2014 [facility] White Blood 6.8 10^3/uL N 4.8-10.[address] [place] [address] [phone] Red Blood Count 5.73 10^6/uL High 4.0-5.4 Hemoglobin 17.5 g/dL N 14.0-18.0 Hematocrit 50 % N 42-52 Mean Corpuscular Volume 87 fL N 80-94 Mean Corpuscular Hemoglobin 31 pg N 27-31 Mean Corpuscular HGB Conc 35 g/dL N 31-36 Red Cell Distribution Width 13 % N 10.5-15 Platelet Count 200 10^3/uL N 150-450 Mean Platelet Volume 8 um3 N 7.4-10.4 Abs Neutrophils 4.4 10^3/uL N 1.5-7.7 Abs Lymphocytes 1.7 10^3/uL N 1.0-4.8 Abs Monocytes 0.5 10^3/uL N 0-0.8 Abs Eosinophils 0.2 10^3/uL N 0-0.6 Abs Basophils 0.1 10^3/uL N 0-0.2 Abs Nucleated RBC 0 10^3/uL N Granulocyte % 64.2 % N 38-83 Lymphocyte % 24.3 % Low 25-47 Monocyte % 7.7 % N 1-9 Eosinophil % 2.9 % N 0-6 Basophil % 0.9 % N 0-2 Nucleated Red Blood Cells % 0.1 N Inr/Protime 01/05/2014 [facility] Inr 0.85 N 0.85-1.[address] [place] [address] [phone] Laboratory test 11/09/2013 [facility] Hemoglobin A1c 6.6 5-7 finding Laboratory test 08/09/2013 [facility] Hemoglobin A1c 7.9 High 5-7 finding Basic Metabolic 06/16/2013 [facility] Sodium 133 133-[address] mmol/[place] [address] [phone] Potassium 4.3 mmol/L 3.5-5.0 Chloride 100 mmol/L Low 101-111 Co2 Carbon Dioxide 27.0 mmol/L 22-32 Anion Gap 6.0 mmol/L 2-11 Glucose 206 mg/dL High 70-100 Blood Urea Nitrogen 20 mg/dL 6-24 Creatinine 0.80 mg/dL 0.50-1.40 BUN/Creatinine Ratio 25.0 High 8-20 Calcium 9.3 mg/dL 8.1-9.9 Egfr Non- 98.3 >60 Egfr 126.4 >60 33 Urine Microalbumin 06/16/2013 [facility] Ur Microalbumin 13.0 mg /L [address] (mg/L) [place] [address] [phone] Urine Creatinine 173.2 mg/dL Urine Microalbumin/Creatinine 7.5 Less Than 31 Lipid Profile 06/16/2013 [facility] Triglycerides 84 mg/dL 40 -200 (Trig/Chol/HDL) [address] [place] [address] [phone] Cholesterol 166 mg/dL Less than 200 HDL Cholesterol 42 mg/dL 40-60 35 Cholesterol/HDL Ratio 4.0 Average 1-4.44 LDL Cholesterol 107.2 High Less Than 100 36 Laboratory test 05/29/2013 [facility] Hemoglobin A1c 7.6 High 5-7 finding Laboratory test 03/18/2013 [facility] Lyme Disease Negative Negative [address] [place] [address] [phone] Laboratory test 10/19/2012 [facility] Hemoglobin A1c 7.4 High 5-7 finding Lipid Profile 04/11/2012 [facility] Triglycerides 105 mg/dL 40-200 (Trig/Chol/HDL) [address] [place] [address] [phone] Cholesterol 162 mg/dL Less than 200 HDL Cholesterol 39 mg/dL Low 40-60 38 Cholesterol/HDL Ratio 4.2 AVERAGE 1-4.44 LDL Cholesterol 102.0 mg/dL High Less Than 100 39 Comp Metabolic Panel 04/11/2012 [facility] Sodium 135 mmol/L 133-[address] [place] [address] [phone] Potassium 4.2 mmol/L 3.5-5.0 Chloride 103 mmol/L 101-111 Co2 Carbon Dioxide 29.0 mmol/L 22-32 Anion Gap 3.0 mmol/L 2-11 Glucose 175 mg/dL High 70-100 Blood Urea Nitrogen 19 mg/dL 6-24 Creatinine 0.90 mg/dL 0.50-1.40 BUN/Creatinine Ratio 21.1 High 8-20 Calcium 9.2 mg/dL 8.1-9.9 Total Protein 5.9 GM/DL Low 6.2-8.1 Albumin 4.4 GM/DL 3.2-5.2 Globulin 1.5 GM/DL Low 2-4 Albumin/Globulin Ratio 2.9 1-3 Total Bilirubin 1.3 mg/dL High 0.1-1.0 40 Alkaline Phosphatase 67 U/L 30-110 Alt 22 U/L 14-54 Ast 11 U/L Low 12-42 Egfr Non- 86.1 >60 Egfr 110.7 >60 41 Laboratory test 04/11/2012 [facility] Hemoglobin A1c 7.0 % High Less [address] than 6.0 [place] [address] [phone] Urine 04/11/2012 [facility] Ur Microalbumin 15.0 [address] (Mg/L) mg/[place] [address] [phone] Urine Creatinine 258.1 mg/dL Urine Microalbumin/Creatinine 5.8 UG/MG Less Than 31 Laboratory test 09/30/2011 [facility] Hemoglobin A1c 7.5 % High Less Than [address] 6[address]0 [place], [place] [id number] [phone] Lipid Profile 09/30/2011 [facility] Triglyceride 70 mg/dL 40- 200 (Trig/Chol/HDL) [address] [place] [address] [phone] Cholesterol 150 mg/dL Less Than 200 45 High Density Lipoprotein 37 mg/dL Low 40-60 46 Cholesterol/HDL Ratio 4.05 AVERAGE 1-4.97 Low Density Lipoprotein 99 mg/dL Less Than 100 47 Urine Microalbumin 09/30/2011 [facility] Microalbumin 27.0 mg/L Random [address] (MG/L) [place] [address] [phone] Urine Creatinine 210.4 mg/dL Nelson Alb/Creatinine Ratio 12.8 UG/MG Less Than 30 48 Basic Metabolic Panel 09/30/2011 [facility] Sodium 135 mmol/L 135-[address] [place] [address] [phone] Potassium 4.5 mmol/L 3.5-5.0 Chloride 104 mmol/L 101-111 Co2 (Carbon Dioxide) 26.0 mmol/L 22-32 Anion Gap 5.0 mmol/L 2-11 49 Glucose 174 mg/dL High 70-100 BUN 20 mg/dL 6-24 Creatinine 0.9 mg/dL 0.50-1.40 One Over Creatinine 1.11 BUN/Creatinine Ratio 22.2 High 8-20 Calcium 9.3 mg/dL 8.1-9.9 eGFR Non- 86.4 > 60 eGFR 111.1 > 60 50 Laboratory test 07/10/2011 [facility] Hemoglobin A1c 7.4 High 5-7 finding Surgical 12/25/2010 [facility] Surgical [address] Pathology ------ [place] [address] <SEE NOTE> [phone] Laboratory test 12/19/2010 [facility] Hemoglobin A1c 6.5 5-7 finding Lipid Panel - JF 12/15/2010 [facility] CPK (Creatine 108 U/L 0-[address] Kinase) [place] [address] [phone] Comp Metabolic 12/15/2010 [facility] Sodium 138 mmol/L 135- [address] [place] [address] [phone] Potassium 4.3 mmol/L 3.5-5.0 Chloride 106 mmol/L 101-111 Co2 (Carbon Dioxide) 26.0 mmol/L 22-32 Anion Gap 6.0 mmol/L 2-11 52 Glucose 164 mg/dL High 70-100 BUN 21 mg/dL 6-24 Creatinine 0.90 mg/dL 0.50-1.40 One Over Creatinine 1.10 BUN/Creatinine Ratio 23.3 High 8-20 Calcium 9.0 mg/dL 8.1-9.9 Total Protein 5.9 GM/DL Low 6.2-8.1 Albumin 4.4 GM/DL 3.6-5.4 Globulin 1.5 GM/DL Low 2-4 Albumin/Globulin Ratio 2.9 1-3 Bilirubin Total 1.2 mg/dL 0.4-1.5 53 Alkaline Phosphatase 69 U/L 39-117 Alt (SGPT) 24 U/L 17-63 Ast (Sgot) 15 U/L 12-42 eGFR Non- 86.7 > 60 eGFR 111.5 > 60 54 Lipid Profile 12/15/2010 [facility] Triglyceride 47 mg/dL 40- 200 (Trig/Chol/HDL) [address] [place] [address] [phone] Cholesterol 155 mg/dL Less Than 200 55 High Density Lipoprotein 43 mg/dL 40-60 56 Cholesterol/HDL Ratio 3.60 AVERAGE 1-4.97 Low Density Lipoprotein 103 mg/dL High Less Than 100 57 Urine Microalbumin 12/15/2010 [facility] Microalbumin 12.0 mg/L Random [address] (MG/L) [place] [address] [phone] Urine Creatinine 234.58 mg/dL [place]/Creatinine Ratio 5.1 UG/MG Less Than 30 58 Laboratory test 09/03/2010 [facility] Hemoglobin A1c 7.2 High 5-7 finding Laboratory test 06/05/2010 [facility] Hemoglobin A1c 9.5 High 5-7 finding Urinalysis 06/05/2010 [facility] Ua Color YELLOW Yellow [address] [place] [address] [phone] Appearance-Urine CLEAR Clear Specific [place]-Ur 1.038 High 1.010-1.030 Esterase-Urine NEGATIVE Negative Nitrite NEGATIVE Negative Xidpptckgake-Cx-[id number] NEGATIVE Negative Protein-Urine NEGATIVE Negative PH-Urine 5.5 5-9 Blood-Urine NEGATIVE Negative Ketones-Urine 1+ Abnormal Negative Bilirubin-Ur NEGATIVE Negative Glucose-Urine 3+ Abnormal Negative Urine Culture & 06/05/2010 [facility] Urine Culture NG [address] [address] [phone] Laboratory test 12/13/2009 [facility] Hemoglobin A1c 6.3 % High Less [address] Than 6.0 [place] [address] [phone] Urine 12/13/2009 [facility] Microalbumin 11.[address] (MG/L) mg/[place] [address] [phone] Urine Creatinine 156.53 mg/dL [place]/Creatinine Ratio 7.0 UG/MG Less Than 30 61 Lipid Panel - 12/13/2009 [facility] CPK (Creatine 55 U/L 0- [address] Kinase) [place] [address] [phone] Lipid Profile 12/13/2009 [facility] Triglyceride 62 mg/dL 40- 200 (Trig/Chol/HDL [address] ) [place] [address] [phone] Cholesterol 161 mg/dL Less Than 200 62 High Density Lipoprotein 38 mg/dL Low 40-60 63 Cholesterol/HDL Ratio 4.24 AVERAGE 1-4.97 Low Density Lipoprotein 111 mg/dL High Less Than 100 64 Comp Metabolic Panel 12/13/2009 [facility] Sodium 136 mmol/L 135-[address] [place] [address] [phone] Potassium 4.3 mmol/L 3.5-5.0 Chloride 105 mmol/L 101-111 Co2 (Carbon Dioxide) 25.0 mmol/L 22-32 Anion Gap 6.0 mmol/L 2-11 65 Glucose 174 mg/dL High 70-100 66 BUN 22 mg/dL 6-24 Creatinine 0.90 mg/dL 0.50-1.40 One Over Creatinine 1.10 BUN/Creatinine Ratio 24.4 High 8-20 Calcium 9.1 mg/dL 8.1-9.9 67 Total Protein 6.2 GM/DL 6.2-8.1 Albumin 4.5 GM/DL 3.6-5.4 Globulin 1.7 GM/DL Low 2-4 Albumin/Globulin Ratio 2.6 1-3 Bilirubin Total 1.5 mg/dL 0.4-1.5 68 Alkaline Phosphatase 69 U/L 39-117 Alt (SGPT) 27 U/L 17-63 Ast (Sgot) 17 U/L 12-42 eGFR Non- 92.4 > 60 eGFR 111.9 > 60 69 Laboratory test 08/31/2008 [facility] Hemoglobin A1c 6.1 5-7 finding Basic Metabolic 08/17/2008 [facility] Sodium 136 mmol/L 135- 145 Panel [address] [place] [address] [phone] Potassium 4.7 mmol/L 3.5-5.0 Chloride 103 mmol/L 101-111 Co2 (Carbon Dioxide) 26.0 mmol/L 22-32 Anion Gap 7.0 mmol/L 2-11 70 Glucose 147 mg/dL High 70-100 71 BUN 18 mg/dL 6-24 Creatinine 0.90 mg/dL 0.50-1.40 One Over Creatinine 1.10 BUN/Creatinine Ratio 20.0 8-20 Calcium 9.3 mg/dL 8.1-9.9 72 Lipid Profile 08/17/2008 [facility] Triglyceride 70 mg/dL 40- 200 (Trig/Chol/HDL) [address] [place] [address] [phone] Cholesterol 149 mg/dL Less Than 200 73 High Density Lipoprotein 37 mg/dL Low 40-60 74 Cholesterol/HDL Ratio 4.03 AVERAGE 1-4.97 Low Density Lipoprotein 98 mg/dL Less Than 100 75 1 Because ethnic data is not always readily available, this report includes an eGFR for both -Americans and non- Americans. The National Kidney Disease Education Program (NKDEP) does not endorse the use of the MDRD equation for patients that are not between the ages of 18 and 70, are , have extremes of body size, muscle mass, or nutritional status, or are non- or non-. According to the National Kidney Foundation, irrespective of diagnosis, the stage of the disease is based on the level of kidney function: Stage Description GFR(mL/min/1.73 m(2)) 1 Kidney damage with normal or decreased GFR 90 2 Kidney damage with mild decrease in GFR 60-89 3 Moderate decrease in GFR 30-59 4 Severe decrease in GFR 15-29 5 Kidney failure <15 (or dialysis) 2 Desirable: <150 Borderline High: 150-199 High: 200-499 Very High: >500 3 Desirable: <200 Borderline High: 200-239 High: >239 4 Low: <40 Desirable: 40-60 High: >60 5 Desirable: <100 Near Optimal: 100-129 Borderline High: 130-159 High: 160-189 Very High: >189 6 Because ethnic data is not always readily available, this report includes an eGFR for both -Americans and non- Americans. The National Kidney Disease Education Program (NKDEP) does not endorse the use of the MDRD equation for patients that are not between the ages of 18 and 70, are , have extremes of body size, muscle mass, or nutritional status, or are non- or non-. According to the National Kidney Foundation, irrespective of diagnosis, the stage of the disease is based on the level of kidney function: Stage Description GFR(mL/min/1.73 m(2)) 1 Kidney damage with normal or decreased GFR 90 2 Kidney damage with mild decrease in GFR 60-89 3 Moderate decrease in GFR 30-59 4 Severe decrease in GFR 15-29 5 Kidney failure <15 (or dialysis) 7 Low risk: <1.00 Average risk: 1.00-3.00 High risk: >3.00 8 Desirable: <150 Borderline High: 150-199 High: 200-499 Very High: >500 9 Desirable: <200 Borderline High: 200-239 High: >239 10 Low: <40 Desirable: 40-60 High: >60 11 Desirable: <100 Near Optimal: 100-129 Borderline High: 130-159 High: 160-189 Very High: >189 12 Unable to calculate due to low microalbumin 13 Therapeutic target for the treatment of diabetes mellitus patients is <7% HBA1C, and in selective patients <6.0%. Please refer to [place] [employer] diabetic care guidelines for further information. 14 Please note: The following may produce a false positive D Dimer test: - Rheumatoid factor greater than 60 IU/ml - Plasma hemoglobin greater than 0.05 gm/dl - Bilirubin greater than 50 mg/dl - Lipids greater than 1000 mg/dl - FDP greater than 20 ug/ml 15 Because ethnic data is not always readily available, this report includes an eGFR for both -Americans and non- Americans. The National Kidney Disease Education Program (NKDEP) does not endorse the use of the MDRD equation for patients that are not between the ages of 18 and 70, are , have extremes of body size, muscle mass, or nutritional status, or are non- or non-. According to the National Kidney Foundation, irrespective of diagnosis, the stage of the disease is based on the level of kidney function: Stage Description GFR(mL/min/1.73 m(2)) 1 Kidney damage with normal or decreased GFR 90 2 Kidney damage with mild decrease in GFR 60-89 3 Moderate decrease in GFR 30-59 4 Severe decrease in GFR 15-29 5 Kidney failure <15 (or dialysis) 16 Acute inflammation: >10.00 17 Therapeutic target for the treatment of diabetes Mellitus patients is <7% HBA1C, and in selective patients <6.0%.Please refer to [place] [employer] Diabetic care guidelines for further information. 18 Desirable <150 Borderline high 150-199 High 200-499 Very High >500 19 Desirable <200 Borderline high 200-239 High >239 20 Low <40 Desirable: 40-60 High: >60 21 Desirable: <100 mg/dL Near Optimal: 100-129 mg/dL Borderline High: 130-159 mg/dL High: 160-189 mg/dL Very High: >189 mg/dL 22 FASTING To be done in early July 23 FASTING To be done in early July 24 Because ethnic data is not always readily available, this report includes an eGFR for both -Americans and non- Americans. The National Kidney Disease Education Program (NKDEP) does not endorse the use of the MDRD equation for patients that are not between the ages of 18 and 70, are , have extremes of body size, muscle mass, or nutritional status, or are non- or non-. According to the National Kidney Foundation, irrespective of diagnosis, the stage of the disease is based on the level of kidney function: Stage Description GFR(mL/min/1.73 m(2)) 1 Kidney damage with normal or decreased GFR 90 2 Kidney damage with mild decrease in GFR 60-89 3 Moderate decrease in GFR 30-59 4 Severe decrease in GFR 15-29 5 Kidney failure <15 (or dialysis) 25 Therapeutic target for the treatment of diabetes Mellitus patients is <7% HBA1C, and in selective patients <6.0%.Please refer to [place] [employer] Diabetic care guidelines for further information. 26 Because ethnic data is not always readily available, this report includes an eGFR for both -Americans and non- Americans. The National Kidney Disease Education Program (NKDEP) does not endorse the use of the MDRD equation for patients that are not between the ages of 18 and 70, are , have extremes of body size, muscle mass, or nutritional status, or are non- or non-. According to the National Kidney Foundation, irrespective of diagnosis, the stage of the disease is based on the level of kidney function: Stage Description GFR(mL/min/1.73 m(2)) 1 Kidney damage with normal or decreased GFR 90 2 Kidney damage with mild decrease in GFR 60-89 3 Moderate decrease in GFR 30-59 4 Severe decrease in GFR 15-29 5 Kidney failure <15 (or dialysis) 27 Desirable <150 Borderline high 150-199 High 200-499 Very High >500 28 Desirable <200 Borderline high 200-239 High >239 29 Low <40 Desirable: 40-60 High: >60 30 Desirable: <100 mg/dL Near Optimal: 100-129 mg/dL Borderline High: 130-159 mg/dL High: 160-189 mg/dL Very High: >189 mg/dL 31 Unable to calculate due to low microalbumin 32 Because ethnic data is not always readily available, this report includes an eGFR for both -Americans and non- Americans. The National Kidney Disease Education Program (NKDEP) does not endorse the use of the MDRD equation for patients that are not between the ages of 18 and 70, are , have extremes of body size, muscle mass, or nutritional status, or are non- or non-. According to the National Kidney Foundation, irrespective of diagnosis, the stage of the disease is based on the level of kidney function: Stage Description GFR(mL/min/1.73 m(2)) 1 Kidney damage with normal or decreased GFR 90 2 Kidney damage with mild decrease in GFR 60-89 3 Moderate decrease in GFR 30-59 4 Severe decrease in GFR 15-29 5 Kidney failure <15 (or dialysis) 33 Because ethnic data is not always readily available, this report includes an eGFR for both -Americans and non- Americans. The National Kidney Disease Education Program (NKDEP) does not endorse the use of the MDRD equation for patients that are not between the ages of 18 and 70, are , have extremes of body size, muscle mass, or nutritional status, or are non- or non-. According to the National Kidney Foundation, irrespective of diagnosis, the stage of the disease is based on the level of kidney function: Stage Description GFR(mL/min/1.73 m(2)) 1 Kidney damage with normal or decreased GFR 90 2 Kidney damage with mild decrease in GFR 60-89 3 Moderate decrease in GFR 30-59 4 Severe decrease in GFR 15-29 5 Kidney failure <15 (or dialysis) 34 Microalbuminuria in a random sample is defined as: Microalbumin/Creatinine ratio of 30-299 ug/mg. 35 HDL Interpretation: Undesirable: High Risk: Less than 40 mg/dL Desirable: Low Risk: Greater than 60 mg/dL 36 LDL Interpretation: Low Risk Optimal Level: LDL Less than 100 mg/dL Near or Above Optimal: LDL 100-129 mg/dL Borderline High Risk: LDL 130-159 mg/dL High Risk: LDL 160-189 mg/dL Very High Risk: LDL Greater than 189 mg/dL 37 Serologic response to B. burgdorferi infection is not detected, but cannot rule out early infection during which low or undetectable antibody levels to B. burgdorferi may be present. If clinically indicated, a new serum specimen should be submitted in 7-14 days. Test Performed by: [address] [address] [employer] Worker: Sae Dean III, M.D. 38 HDL Interpretation: Undesirable: High Risk: Less than 40 MG/DL Desirable: Low Risk: Greater than 60 MG/DL 39 LDL Interpretation: Low Risk Optimal Level: LDL Less than 100 MG/DL Near or Above Optimal: LDL 100-129 MG/DL Borderline High Risk: LDL 130-159 MG/DL High Risk: LDL 160-189 MG/DL Very High Risk: LDL Greater than 189 MG/DL 40 A metabolite of Naproxen, O-desmethylnaproxen, has been shown to interfere with the Jendrassik-Hartrandt method for measuring total bilirubin. Samples from patients who have taken Naproxen have shown spurious elevation in total bilirubin levels. 41 Because ethnic data is not always readily available, this report includes an eGFR for both -Americans and non- Americans. The National Kidney Disease Education Program (NKDEP) does not endorse the use of the MDRD equation for patients that are not between the ages of 18 and 70, are , have extremes of body size, muscle mass, or nutritional status, or are non- or non-. According to the National Kidney Foundation, irrespective of diagnosis, the stage of the disease is based on the level of kidney function: Stage Description GFR(mL/min/1.73 m(2)) 1 Kidney damage with normal or decreased GFR 90 2 Kidney damage with mild decrease in GFR 60-89 3 Moderate decrease in GFR 30-59 4 Severe decrease in GFR 15-29 5 Kidney failure <15 (or dialysis) 42 Therapeutic target for the treatment of diabetes Mellitus patients is <7% HBA1C, and in selective patients <6.0%.Please refer to [place] [employer] Diabetic care guidelines for further information. 43 Microalbuminuria in a random sample is defined as: Microalbumin/Creatinine ratio of 30-299 ug/mg. 44 THERAPEUTIC TARGET FOR THE TREATMENT OF DIABETES MELLITUS PATIENTS IS <7% HBA1C, AND IN SELECTIVE PATIENTS <6.0%. PLEASE REFER TO [place] [employer] DIABETIC CARE GUIDELINES FOR FURTHER INFORMATION. 45 CHOLESTEROL INTERPRETATION: Desirable: Less than 200 MG/DL Borderline-High Risk: 200-239 MG/DL High-Risk: 240 MG/DL and over 46 HDL INTERPRETATION: Undesirable: High Risk: Less than 40 MG/DL Desirable: Low Risk: Greater than 60 MG/DL 47 LDL INTERPRETATION: Low Risk Optimal Level: LDL Less than 100 MG/DL Near or Above Optimal: LDL 100-129 MG/DL Borderline High Risk: LDL 130-159 MG/DL High Risk: LDL 160-189 MG/DL Very High Risk: LDL Greater than 189 MG/DL 48 MICROALBUMINURIA IN A RANDOM SAMPLE IS DEFINED : MICROALBUMIN/CREATININE RATIO OF 30-299 ug/mg. . 49 Anion gap measurement may be of limited value in the presence of any alkalosis, especially in a combined acid base disorder. . 50 Because ethnic data is not always readily available, this report includes an eGFR for both -Americans and non- Americans. The National Kidney Disease Education Program (NKDEP) does not endorse the use of the MDRD equation for patients that are not between the ages of 18 and 70, are , have extremes of body size, muscle mass, or nutritional status, or are non- or non-. According to the National Kidney Foundation, irrespective of diagnosis, the stage of the disease is based on the level of kidney function: Stage Description GFR(mL/min/1.73 m(2)) 1 Kidney damage with normal or decreased GFR 90 2 Kidney damage with mild decrease in GFR 60-89 3 Moderate decrease in GFR 30-59 4 Severe decrease in GFR 15-29 5 Kidney failure <15 (or dialysis) 51 ---- RUN DATE: 12/29/10 [facility] NMI LIVE PAGE 1 RUN TIME: 1558 Specimen Inquiry RUN USER: INTERFACE -- Name: AIDEN SEARS Status: REG REF Re12/25/10 Age/Sex: 60/M Unit#: [id number] Location: [facility]. : 54 -- Specimen: [id number] SOUT Spec Date: 12/25/[address]: Desean jett MD Spec Type: SURGICAL P Received: 12/26/10 Copies to: David yuan MD SPECIMEN BIOPSY COLON POLYP AT 40 CM. HISTORY POST-OP DIAGNOSIS: Colonoscopy to terminal ileum, prep good; small descen ding colon polyp removed CLINICAL INFORMATION: Screening colonoscopy for follow-up; history of col on polyps GROSS DESCRIPTION The specimen is received in formalin labelled Aiden Sears, Biopsy Colon Polyp at 40 cm., and consists of one fragment of yellow tissue measuring 0.3 x 0.3 x 0.2 cm. Submitted entirely, one cassette. DIAGNOSIS Colon, 40 cm., biopsy: Hyperplastic polyp. Signed Electronically by: MARCELLUS JOE MD 12/29/10 1557 -- -- DEPARTMENT OF PATHOLOGY, [address] [place] [address] [facility] [facility] [place] Permit #[id number] Marcellus Joe M.D. Director Nereyda Cain M.D. Education Associate Dir tali -- 52 Anion gap measurement may be of limited value in the presence of any alkalosis, especially in a combined acid base disorder. . 53 A metabolite of Naproxen, O-desmethylnaproxen, has been shown to interfere with the Jendrassik-Lexi method for measuring total bilirubin. Samples from patients who have taken Naproxen have shown spurious elevation in total bilirubin levels. 54 Because ethnic data is not always readily available, this report includes an eGFR for both -Americans and non- Americans. The National Kidney Disease Education Program (NKDEP) does not endorse the use of the MDRD equation for patients that are not between the ages of 18 and 70, are , have extremes of body size, muscle mass, or nutritional status, or are non- or non-. According to the National Kidney Foundation, irrespective of diagnosis, the stage of the disease is based on the level of kidney function: Stage Description GFR(mL/min/1.73 m(2)) 1 Kidney damage with normal or decreased GFR 90 2 Kidney damage with mild decrease in GFR 60-89 3 Moderate decrease in GFR 30-59 4 Severe decrease in GFR 15-29 5 Kidney failure <15 (or dialysis) 55 CHOLESTEROL INTERPRETATION: Desirable: Less than 200 MG/DL Borderline-High Risk: 200-239 MG/DL High-Risk: 240 MG/DL and over 56 HDL INTERPRETATION: Undesirable: High Risk: Less than 40 MG/DL Desirable: Low Risk: Greater than 60 MG/DL 57 LDL INTERPRETATION: Low Risk Optimal Level: LDL Less than 100 MG/DL Near or Above Optimal: LDL 100-129 MG/DL Borderline High Risk: LDL 130-159 MG/DL High Risk: LDL 160-189 MG/DL Very High Risk: LDL Greater than 189 MG/DL 58 MICROALBUMINURIA IN A RANDOM SAMPLE IS DEFINED : MICROALBUMIN/CREATININE RATIO OF 30-299 ug/mg. . 59 FINAL: NO GROWTH DAY 2 (<1,000 CFU/mL) 60 THERAPEUTIC TARGET FOR THE TREATMENT OF DIABETES MELLITUS PATIENTS IS <7% HBA1C, AND IN SELECTIVE PATIENTS <6.0%. PLEASE REFER TO [place] [employer] DIABETIC CARE GUIDELINES FOR FURTHER INFORMATION. 61 MICROALBUMINURIA IN A RANDOM SAMPLE IS DEFINED : MICROALBUMIN/CREATININE RATIO OF 30-299 ug/mg. . 62 CHOLESTEROL INTERPRETATION: Desirable: Less than 200 MG/DL Borderline-High Risk: 200-239 MG/DL High-Risk: 240 MG/DL and over 63 HDL INTERPRETATION: Undesirable: High Risk: Less than 40 MG/DL Desirable: Low Risk: Greater than 60 MG/DL 64 LDL INTERPRETATION: Low Risk Optimal Level: LDL Less than 100 MG/DL Near or Above Optimal: LDL 100-129 MG/DL Borderline High Risk: LDL 130-159 MG/DL High Risk: LDL 160-189 MG/DL Very High Risk: LDL Greater than 189 MG/DL 65 Anion gap measurement may be of limited value in the presence of any alkalosis, especially in a combined acid base disorder. . 66 Note change in reference range as of 01/19/08. The change was based on recommendations from the [place] [employer]. 67 Please note change in reference range effective 07 . 68 A metabolite of Naproxen, O-desmethylnaproxen, has been shown to interfere with the Jendrassik-Lexi method for measuring total bilirubin. Samples from patients who have taken Naproxen have shown spurious elevation in total bilirubin levels. 69 Because ethnic data is not always readily available, this report includes an eGFR for both -Americans and non- Americans. The National Kidney Disease Education Program (NKDEP) does not endorse the use of the MDRD equation for patients that are not between the ages of 18 and 70, are , have extremes of body size, muscle mass, or nutritional status, or are non- or non-. According to the National Kidney Foundation, irrespective of diagnosis, the stage of the disease is based on the level of kidney function: Stage Description GFR(mL/min/1.73 m(2)) 1 Kidney damage with normal or decreased GFR 90 2 Kidney damage with mild decrease in GFR 60-89 3 Moderate decrease in GFR 30-59 4 Severe decrease in GFR 15-29 5 Kidney failure <15 (or dialysis) 70 Anion gap measurement may be of limited value in the presence of any alkalosis, especially in a combined acid base disorder. . 71 Note change in reference range as of 01/19/08. The change was based on recommendations from the [place] [employer]. 72 Please note change in reference range effective 07 . 73 CHOLESTEROL INTERPRETATION: Desirable: Less than 200 MG/DL Borderline-High Risk: 200-239 MG/DL High-Risk: 240 MG/DL and over 74 HDL INTERPRETATION: Undesirable: High Risk: Less than 40 MG/DL Desirable: Low Risk: Greater than 60 MG/DL 75 LDL INTERPRETATION: Low Risk Optimal Level: LDL Less than 100 MG/DL Near or Above Optimal: LDL 100-129 MG/DL Borderline High Risk: LDL 130-159 MG/DL High Risk: LDL 160-189 MG/DL Very High Risk: LDL Greater than 189 MG/DL Procedures Date Code Description Status 08/11/2018 15679 EKG Tracing & Interpretation Completed 07/21/2018 96499 Destruction ALL Benign Or Premalignant Lesion (Other Completed Than [place] 07/21/2018 66065 Each Separate/Additional Lesion Completed 07/21/2018 32488 Tangential Biopsy Of Skin, Single Lesion Completed 10/01/2017 01486 EKG Tracing & Interpretation Completed 06/01/2017 83768 EKG Tracing & Interpretation Completed 12/17/2016 71731 EKG Tracing & Interpretation Completed 10/13/2016 36880 EKG Tracing & Interpretation Completed 09/08/2016 84194 Stress Test Completed 09/08/2016 49752 Myocardial Perfusion Imaging Tomographic (Spect) Completed Multiple Studies 05/05/2016 79525 EKG, Interpretation Only Completed 05/04/2016 61768 Percutaneous Transcatheter Placement Of Intracoronary Completed Stent 05/04/2016 85395 Percutaneous Transcatheter Placement Of Intracoronary Completed Stent 05/04/2016 43111 EKG, Interpretation Only Completed 05/04/2016 40377 ECHO Transthorasic Realtime 2D W Doppler & Color Flow Completed Hosp 05/04/2016 07099 Left Heart Cath. Incl S/I Coronaries, Angio S/I V Gram Completed If Done 05/03/2016 77007 EKG, Interpretation Only Completed 12/30/2015 [id number] Diabetic Retinal Eye Exam Completed 01/08/2014 77918 Left Heart Cath. Incl S/I Coronaries, Angio S/I V Gram Completed If Done 01/05/2014 18214 Stress Test Completed 01/05/2014 30990 Stress Test Completed 10/27/2013 [id number] Diabetic Retinal Eye Exam Completed 05/29/2013 74606 EKG Tracing & Interpretation Completed 12/09/2012 69293 Xray Knee 3 Views Completed 12/09/2012 87906 Rad Exam; Knee, Ap&L Completed 09/08/2012 [id number] Diabetic Retinal Eye Exam Completed 12/25/2010 [id number] Colonoscopy Completed 11/19/2005 [id number] Colonoscopy Completed Encounters Type Date Location Provider Dx Diagnosis Office Visit 08/11/2018 [facility] Marisol Whittington, I25.10 [facility] 3:40p Of Mary cShreiber 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 E78.2 Mixed hyperlipidemia E11.8 Type 2 diabetes mellitus with unspecified complications Office Visit 07/21/2018 9:20a [facility] Dionne Zarate L73.8 Other specified follicular disorders D23.72 Oth benign neoplasm skin/ left lower limb, including hip D23.71 Oth benign neoplasm skin/ right lower limb, including hip L82.1 Other seborrheic keratosis Z80.8 Family history of malignant neoplasm of organs or systems L98.9 Disorder of the skin and subcutaneous tissue, unspecified L57.0 Actinic keratosis Office Visit 07/04/2018 10:00a [facility] Ana Lenz MD Z00.00 [facility] - Suite general adult R medical exam w/o abnormal findings E11.8 Type 2 diabetes mellitus with unspecified complications I10 Essential (primary) hypertension E78.00 Pure hypercholesterolemia, unspecified K63.5 Polyp of colon L57.8 Oth skin changes due to chr expsr to nonionizing radiation Office Visit 12/15/2017 10:00a [facility] David Gutierrez I25.119 [facility] - Héctor Granados M.D.,FACP disease of R [place] cor art w unsp ang pctrs E11.8 Type 2 diabetes mellitus with unspecified complications Office Visit 10/01/2017 4:20p [facility] Marisol Whittington, R07.9 Chest pain, Of Mary Schreiber unspecified I25.119 [facility] disease of [place] cor art w unsp ang pctrs R94.31 Abnormal electrocardiogram [ECG] [EKG] I10 Essential (primary) hypertension Office Visit 07/01/2017 11:20a [facility] David Gutierrez Z00.00 [facility] for [facility] - Héctor Granados M.D.,FACP general adult R medical exam w/o abnormal findings E11.8 Type 2 diabetes mellitus with unspecified complications I25.10 [facility] 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 Z13.6 Encounter for screening for cardiovascular disorders Z23 Encounter for immunization Office Visit 06/01/2017 11:20a [facility] Marisol Whittington, I25.10 [facility] Of Mary Schreiber 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 E78.00 Pure hypercholesterolemia, unspecified E11.8 Type 2 diabetes mellitus with unspecified complications I10 Essential (primary) hypertension Office Visit 01/15/2017 3:40p [facility] David Gutierrez E11.8 Type 2 diabetes Waldemar Granados M.D.,FACP mellitus with Suite R unspecified complications I25.10 [facility] 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 Office Visit 12/17/2016 1:30p [facility] Marisol Whittington, I25.10 [facility] Of Mary Schreiber 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 E11.8 Type 2 diabetes mellitus with unspecified complications E78.00 Pure hypercholesterolemia, unspecified I10 Essential (primary) hypertension Office Visit 12/07/2016 1:40p [facility] David Gutierrez 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.,FACP syndrome, right Suite R leg I82.401 Acute embolism and thombos unsp deep veins of r low extrem I25.10 [facility] 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 Office Visit 08/18/2016 2:40p [facility] David Gutierrez E11.8 Type 2 diabetes Medicine - Candie Granados,FACP mellitus with Ccmob unspecified complications M75.102 Unsp rotatr-cuff tear/ruptr of left shoulder, not trauma I25.10 [facility] 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 Office Visit 06/19/2016 3:45p [facility] Marisol Whittington, I25.10 [facility] Of [facility] M.DLiberty 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 E78.00 Pure hypercholesterolemia, unspecified G47.33 Obstructive sleep apnea (adult) (pediatric) E11.8 Type 2 diabetes mellitus with unspecified complications Office Visit 05/13/2016 2:00p [facility] Juan Hyde, I25.10 [facility], disease of [facility] [place] coronary artery w/o ang pctrs I10 Essential (primary) hypertension E78.5 Hyperlipidemia, unspecified Z48.812 Encntr for surgical aftcr following surgery on the circ sys Office Visit 05/12/2016 4:00p [facility] David Gutierrez I25.10 [facility] - Siri Granados M.D.,FACP 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 E11.8 Type 2 diabetes mellitus with unspecified complications Office Visit 05/05/2016 [facility] R07.9 Chest pain, 8:40a Assoc,pc Riki, HOME CARE CONSULTANT unspecified Hospitalists E11.8 Type 2 diabetes mellitus with unspecified complications I10 Essential (primary) hypertension Office Visit 05/05/2016 [facility] Juan Hyde, I25.10 [facility] 2:58p [facility], disease of [place] [facility] coronary artery w/o ang pctrs Office Visit 05/03/2016 [facility] R07.9 Chest pain, 8:39a Assoc,radha Bright, HOME CARE CONSULTANT unspecified Hospitalists E11.8 Type 2 diabetes mellitus with unspecified complications I10 Essential (primary) hypertension Office Visit 01/07/2016 1:20p [facility] David Gutierrez Z00.00 [facility] for Medicine - Siri Granados M.D.,FACP general adult medical exam w/o abnormal findings E11.65 Type 2 diabetes mellitus with hyperglycemia I10 Essential (primary) hypertension Office Visit 09/17/2015 8:00a [facility] David Gutierrez E11.65 Type 2 diabetes Waldemar Granados M.D.,FACP mellitus with Ccmob hyperglycemia I10 Essential (primary) hypertension Office Visit 06/18/2015 8:00a [facility] David Gutierrez E11.65 Type 2 diabetes Waldemar Granados M.D.,FACP mellitus with Ccmob hyperglycemia Office Visit 04/23/2015 11:30a [facility] Internal Raleigh Mojica NP J06.9 Acute upper Medicine - respiratory Ccmob infection, unspecified Office Visit 11/07/2014 8:50a [facility] David Gutierrez 250.02 Diabetes Dani [facility] M.D.,[facility] W/O Compl Type II Suite R Or Unspec Type Uncontrol 607.84 Impotence Organic Origin v03.82 Streptococcus Pneumoniae Vaccination Spec Other Office Visit 03/22/2014 4:00p [facility] David Gutierrez V70.0 Examination Waldemar [facility] M.D.,[facility] General Medical Ccmob Routine AT Health Care Facility 250.02 Diabetes Mellitus W/O Compl Type II Or Unspec Type Uncontrol Office Visit 01/16/2014 Eryn Gutierrez 794.39 Cardiovascular Study 1:30p Cardiology Jenifer Green M.D. Other Abnormal Leaf Tinner [place] [facility] Office Visit 01/05/2014 Eryn Whittington, 794.39 Cardiovascular Study 7:45a Cardiology Jenifer Schreiber Other Abnormal Leaf Tinner 786.09 Dyspnea & Respiratory Abnormalities Other V17.49 Family HX Of Other Cardiovascular Diseases Office Visit 11/09/2013 8:30a [facility] David Gutierrez 250.02 Diabetes Waldemar Granados M.D.,FACP Mellitus W/O Ccmob Compl Type II Or Unspec Type Uncontrol 786.09 Dyspnea & Respiratory Abnormalities Other Office Visit 08/09/2013 8:30a [facility] David Gutierrez 250.02 Mily Granados M.D.,FACP Mellitus W/O Ccmob Compl Type II Or Unspec Type Uncontrol Office Visit 05/29/2013 8:30a [facility] David Gutierrez 250.02 Mily Granados M.D.,FACP Mellitus W/O Ccmob Compl Type II Or Unspec Type Uncontrol 836.0 Dislocation Knee Tear Of Medial Cartilage Or Meniscus Curren 427.69 Premature Beats Other Office Visit 12/22/2012 2:45p Sleep Disorder Rafael SK. 780.59 Sleep Disturb[facility] Center Candie Valerio Other Office Visit 12/09/2012 1:15p Orthopedic Dirk Cedric, 836.0 Dislocation Knee Services Of M.D. Tear Of Medial [facility] Cartilage Or Meniscus Curren Office Visit 10/19/2012 3:20p [facility] David Gutierrez V70.0 Examination [facility] Granados General Medical M.Matt,FACP Routine AT Health Care Facility 250.02 Diabetes Mellitus W/O Compl Type II Or Unspec Type Uncontrol 327.23 Obstructive Sleep Apnea Adult & Pediatric Office Visit 06/14/2012 4:30p [facility] Jocelyn Del Angel, 466.0 Bronchitis Acute Medicine [facility] Office Visit 04/14/2012 9:30a [facility] David Gutierrez 250.02 Diabetes Mellitus Waldemar Granados M.D.,FACP W/O Compl Type II Ccmob Or Unspec Type Uncontrol 272.0 Hypercholesterolemia Pure 401.1 Hypertension Benign 433.10 Occlusion & Stenosis Carotid Artery W/O Cerebral Infarction V04.81 Need For Prophylactic Vaccination & Inoculation/Influenza V04.89 Need For Prophylactic Vaccination & Inoculation Other Virus Office Visit 10/09/2011 9:40a [facility] Van Gutierrez 250.02 Mily Granados M.D.,FACP Mellitus W/O Ccmob Compl Type II Or Unspec Type Uncontrol 807.01 FX Rib Closed One Office Visit 07/10/2011 10:40a [facility] David Gutierrez 250.02 Mily Granados M.D.,FACP Mellitus W/O Ccmob Compl Type II Or Unspec Type Uncontrol v04.81 Need For Prophylactic Vaccination & Inoculation/Influenza Office Visit 12/19/2010 9:10a DO Not Use Mary Gutierrez V70.0 Examination AT [place] Gran[place] M.D.,FACP General Medical Routine AT Health Care Facility 250.02 Diabetes Mellitus W/O Compl Type II Or Unspec Type Uncontrol V06.1 Dogqdmkyan-Yxuiaks-Mxuocowf Combined (DTaP) V03.82 Streptococcus Pneumoniae Vaccination Spec Other Office Visit 10/01/2010 4:00p DO Not Use Leaf Tinner Cameron Marquez, 692.6 [facility] Contact Due To Plants (Except Food) Office Visit 09/03/2010 8:40a DO Not Use Leaf Tinner David Gutierrez 250.02 Diabetes AT Thang Granados M.D.,[facility] Mellitus W/O Compl Type II Or Unspec Type Uncontrol 380.22 Otitis Externa Other Acute Office Visit 07/07/2010 8:40a DO Not Use Leaf Tinner David Gutierrez 250.02 Diabetes AT Thang Granados M.D.,[facility] Mellitus W/O Compl Type II Or Unspec Type Uncontrol 272.0 Hypercholesterolemia Pure Office Visit 06/05/2010 3:40p DO Not Use Leaf Tinner David Gutierrez 250.02 Diabetes AT Thang Granados M.D.,[facility] Mellitus W/O Compl Type II Or Unspec Type Uncontrol 599.0 UTI Urinary Tract Infection Site Not Spec V04.81 Need For Prophylactic Vaccination & Inoculation/Influenza Office Visit 12/18/2009 2:00p DO Not Use Leaf Tinner David Gutierrez V70.0 Examination AT Thang Granados M.D.,[facility] General Medical Routine AT Health Care Facility 250.02 Diabetes Mellitus W/O Compl Type II Or Unspec Type Uncontrol 401.1 Hypertension Benign 272.0 Hypercholesterolemia Pure Office Visit 11/01/2009 2:00p DO Not Use Leaf Tinner AT DavidJuan Granados, 786.2 [facility] Candie,[facility] 250.02 Diabetes Mellitus W/O Compl Type II Or Unspec Type Uncontrol Office Visit 08/31/2008 3:00p DO Not Use Leaf Tinner David Gutierrez V70.0 Examination AT Thang Granados M.D.,[facility] General Medical Routine AT Health Care Facility 250.02 Diabetes Mellitus W/O Compl Type II Or Unspec Type Uncontrol Office Visit 04/05/2007 3:00p DO Not Use Leaf Tinner David Gutierrez V70.9 Examination AT Thang Granados M.D.,[facility] General Medical Unspec V04.81 Need For Prophylactic Vaccination & Inoculation/Influenza 250.02 Diabetes Mellitus W/O Compl Type II Or Unspec Type Uncontrol Plan of Treatment Future Appointment(s):11/29/2018 10:15 am - Humberto Valdez MD at [facility]11/10/2018 - Chau Keller, 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
[2018-11-10] MEDS ORDERED: Collagen Hemostat* 1 GM JAR TOPICAL ONE (19:06)
--- NOTE | 2018-11-10 19:35 | ED ---
Upper Extremity Pain - HPI Summary HPI Summary: Patient was seen here earlier this morning for partial amputation of second digit of right hand. Patient was discharged and went to orthopedic clinic or seen cauterized performed. Surgery is pending Wednesday. Patient return to the ED complaining of continuous bleeding since cauterization. Patient is on Brilinta and aspirin. History of cardiac stents. Denies any other pain, injury or symptoms. - History of Current Complaint Chief Complaint: EDExtremityUpper Stated Complaint: BLEEDING THROUGH BANDAGE PER PT Time Seen by Provider: 11/10/18 17:45 Hx Obtained From: Patient Mechanism Of Injury: Unknown Onset/Duration: Started Hours Ago Timing: Constant Severity Initially: Mild Severity Currently: None Pain Location: Finger Character: Throbbing Aggravating Factor(s): Nothing Alleviating Factor(s): Nothing Associated Signs & Symptoms: Positive: Negative - Allergies/Home Medications Allergies/Adverse Reactions: Allergies Allergy/AdvReac Type Severity Reaction Status Date / Time No Known Allergies Allergy Verified 11/10/18 10:35 PMH/Surg Hx/FS Hx/Imm Hx Endocrine/Hematology History: Reports: Hx Anticoagulant Therapy Denies: Hx Diabetes, Hx Thyroid Disease Cardiovascular History: Reports: Hx Hypercholesterolemia, Hx Hypertension Respiratory History: Reports: Other Respiratory Problems/Disorders - ex-smoker Denies: Hx Asthma, Hx Chronic Obstructive Pulmonary Disease (COPD) GI History: Reports: Other GI Disorders - bilharzia infection , inguinal hernia repairs Denies: Hx Ulcer Sensory History: Reports: Hx Contacts or Glasses Opthamlomology History: Reports: Hx Contacts or Glasses EENT History: Denies: Hx Deafness Neurological History: Denies: Hx Dementia Psychiatric History: Denies: Hx Autism - Surgical History Surgery Procedure, Year, and Place: 10/29 [facility] [place]- colonoscopy w/biopsy, 03/05 [facility] [place]- (left) inguinal hernia repair, 12/08 [facility] [place]- colonoscopy w/biopsy Infectious Disease History: No Infectious Disease History: Reports: History Other Infectious Disease - malaria/ bilharzia infection , bacterial meningitis 1991 Denies: Hx Clostridium Difficile, Hx Hepatitis, Hx Human Immunodeficiency Virus (HIV), Hx of Known/Suspected MRSA, Hx Shingles, Hx Tuberculosis, Traveled Outside the [place] in Last 30 Days - Family History Known Family History: Positive: Diabetes, Other - Positive stroke and [place] - Social History Alcohol Use: Rare Substance Use Type: Reports: None Hx Tobacco Use: No Smoking Status (MU): Former Smoker Review of Systems Constitutional: Negative Eyes: Negative ENT: Negative Cardiovascular: Negative Respiratory: Negative Gastrointestinal: Negative Genitourinary: Negative Musculoskeletal: Negative Skin: Negative Neurological: Negative Psychological: Normal All Other Systems Reviewed And Are Negative: Yes Physical Exam - Summary Physical Exam Summary: Mild penetration of Kerlix wrap with blood. Bleeding appears to have stopped. No evidence of continuous bleeding. Triage Information Reviewed: Yes Vital Signs On Initial Exam: Initial Vitals Temp Pulse Resp BP Pulse Ox 97.9 F 98 16 178/86 96 11/10/18 17:35 11/10/18 17:35 11/10/18 17:35 11/10/18 17:35 11/10/18 17:35 Vital Signs Reviewed: Yes Appearance: Positive: Well-Appearing Skin: Positive: Warm Head/Face: Positive: Normal Head/Face Inspection Eyes: Positive: Normal Neck: Positive: Supple Respiratory/Lung Sounds: Positive: Clear to Auscultation Cardiovascular: Positive: Normal Abdomen Description: Positive: Nontender Musculoskeletal: Positive: Normal Neurological: Positive: Normal Psychiatric: Positive: Normal AVPU Assessment: Alert - Skyla Coma Scale Best Eye Response: 4 - Spontaneous Best Motor Response: 6 - Obeys Commands Best Verbal Response: 5 - Oriented Coma Scale Total: 15 Diagnostics - Vital Signs Vital Signs Temp Pulse Resp BP Pulse Ox 11/10/18 17:35 97.9 F 98 16 178/86 96 - Laboratory Lab Statement: Any lab studies that have been ordered have been reviewed, and results considered in the medical decision making process. Course/Dx - Course Course Of Treatment: Patient was seen here earlier this morning for partial amputation of second digit of right hand. Patient was discharged and went to orthopedic clinic or Dr. roe cauterized performed. Surgery is pending Wednesday. Patient return to the ED complaining of continuous bleeding since cauterization. Patient is on Brilinta and aspirin. History of cardiac stents. Denies any other pain, injury or symptoms. Physical exam:Mild penetration of Kerlix wrap around index finger with blood. Bleeding appears to have stopped. No evidence of continuous bleeding. Vital signs within normal limits. Patient was advised that there does not appear to be any new bleeding, and likely clotting is formed under the bandage which would be disrupted if bandage was removed in order to attempt to recauterize or reclining warmth. Patient opted to maintain same Curlex bandage and return if bleeding commenced again. Patient advised to stop polenta tomorrow and to follow-up with orthopedics and cardiology regarding management of Brilinta prior to surgery. Patient has history of cardiac stents placed 30 months ago. Patient has 6 months of Brilinta treatment to go. Patient understands and approves plan. - Diagnoses Provider Diagnoses: Bleeding Discharge - Sign-Out/Discharge Documenting (check all that apply): Patient Departure Patient Received Moderate/Deep Sedation with Procedure: No - Discharge Plan Condition: Stable Disposition: HOME Patient Education Materials: Blood Thinners (ED) Referrals: Ana Lenz MD [Primary Care Provider] - Additional Instructions: Discontinue taking Brilinta for tomorrow. Call your orthopedic surgeon tomorrow for presurgical action on anticoagulation. Also call your digital project coordinator tomorrow to confirm stopping Brilinta is acceptable, as he is most aware of your cardiovascular situation. Return to the ED for any new or worsening symptoms. - Billing Disposition and Condition Condition: STABLE Disposition: Home
[2018-11-10 19:41] VITALS: BP 166/83
== END 2018-11-10 19:55 | disposition home or self-care (01) ==
LOC: ED 17:29
DX: L76.22 Postprocedural hemorrhage of skin and subcutaneous tissue following other procedure (principal); Z79.02 Long term (current) use of antithrombotics/antiplatelets; Z79.82 Long term (current) use of aspirin; Z95.5 Presence of coronary angioplasty implant and graft; Z87.891 Personal history of nicotine dependence
CPT/HCPCS: 99282; A9270-GY

== ENCOUNTER 2018-11-14 13:54 | Day surgery (SDC) | payer BC ==
[~2018-11-14 13:54] MED LIST changes: +Buffered Lidocaine 1% SYRIN* 1 ML/SYRINGE INTRADERM ONE; +Lactated Ringers 1000 ML Bag* 1,000 ML IV SCH; +Sodium Citrate/Citric Acid* 15 ML UDC PO ONE; -Tetan/Diph/Pertus SYR(Tdap)* 0.5 ML SYR(BOOSTRIX) use SYR IM ONE; -ceFAZolin 1 GM ADVAN(*) 1 GM in NS 0.9% 50 ML* 50 ML IVPB ONE
[2018-11-14] MEDS ORDERED: ceFAZolin 2 GM in NS PREMIX(*) 2 GM/100 ML BAG IVPB ONE (14:15)
[2018-11-14] MEDS ORDERED: Buffered Lidocaine 1% SYRIN* 1 ML/SYRINGE INTRADERM ONE (14:15)
[2018-11-14] MEDS ORDERED: Sodium Citrate/Citric Acid* 15 ML UDC ONE (14:15)
[2018-11-14] MEDS ORDERED: Metoprolol Tartrate TAB* 25 MG ONE (16:22)
[2018-11-14] MEDS ORDERED: Bupivacaine 0.25% SDV PF* 10 ML VIAL INJ ONE (17:53)
[2018-11-14] MEDS ORDERED: fentaNYL* 50 MCG/ML 2 ML VIAL (100 MCG VIAL) ONE (18:06)
[2018-11-14] MEDS ORDERED: Midazolam* 1 MG/ML 2 ML VIAL (2 MG) ONE (18:06)
[2018-11-14] MEDS ORDERED: Naloxone* 0.4 MG/ML 1 ML VIAL IV PRN (19:23)
[2018-11-14 19:53] VITALS: BP 127/67
--- NOTE | 2018-11-15 00:02 | OP ---
DATE OF OPERATION: 11/14/18 [facility] DATE OF : 54 SURGEON: Humberto Valdez MD. WINE STEWARD: MARLEY Velazquez. ANESTHESIOLOGIST: Dr. Coleman. ANESTHESIA: Local, MAC. PRE-OP DIAGNOSIS: Right index finger trans-distal phalanx partial amputation. POST-OP DIAGNOSIS: Right index finger trans-distal phalanx partial amputation. OPERATIVE PROCEDURE: Removal of nail and ablation of nail bed and revision amputation, right index finger trans-distal phalanx amputation through the base of the distal phalanx. INDICATIONS: Terry had the injury last Wednesday. He was seen by my partner, who communicated with me and we set him up for revision amputation. He understands the risks and benefits. He did want to proceed. ESTIMATED BLOOD LOSS: 2 mL. COMPLICATIONS: None. FINDINGS: See above and below. DESCRIPTION OF PROCEDURE: Terry was seen in the preoperative holding area. The correct side, site, and procedure were identified. We came back to the operating room where the finger was cleaned and then a digital block with 0.25% plain Marcaine was performed. The arm was then prepped and draped with Betadine prep and a time-out was performed. A finger tourniquet was placed on the finger and left on throughout the case. We went ahead and excised the very proximal remnant of the nail over the germinal matrix that remained. I then excised the germinal matrix on the both sides of nailfold in its entirety using a 15-blade and a Ritchie blade. I released the soft tissue around the distal phalanx and then used the bone cutter to amputate it just distal to insertion of the FTP tendon. He had sheared off the epidermis and the dermis on the palmar aspect of the finger, but there was a lot of pulp that remained. I was able to clean up all the skin edges and then I was able to bring that pulp around and close that to the dorsal skin with multiple 3-0 nylon simple interrupted sutures. At this point, the bone was covered, everything was looking very good. We had preserved as much length as possible. I decided that we will just go ahead and let that pulp reepithelialize over the next several weeks in lieu of doing any sort of skin graft, as I do not think it would add that much value to do a skin graft. We went ahead and let off the finger tourniquet. The finger pinked up immediately. A soft dressing was applied and he was taken to the recovery room in stable condition. [id number]/[facility] #: [id number] BRYAN
== END 2018-11-14 19:54 | disposition home or self-care (01) ==
LOC: OR 13:54
PROVIDERS: ATTEND Orthopaedic Surgery Hand Surgery
DX: S68.110A Complete traumatic metacarpophalangeal amputation of right index finger, initial encounter (principal); I10 Essential (primary) hypertension; E11.9 Type 2 diabetes mellitus without complications; E78.5 Hyperlipidemia, unspecified; I25.10 Atherosclerotic heart disease of native coronary artery without angina pectoris; G47.33 Obstructive sleep apnea (adult) (pediatric); E78.00 Pure hypercholesterolemia, unspecified; Z86.79 Personal history of other diseases of the circulatory system
CPT/HCPCS: A9270-GY; J0690; J2250; J3010; J3490

== ENCOUNTER 2019-01-25 06:40 | Day surgery (SDC) | payer BC ==
[2019-01-25] MEDS ORDERED: Midazolam* 1 MG/ML 2 ML VIAL (2 MG) ONE ×2 (08:13→08:34)
[2019-01-25 09:03] VITALS: BP 126/72
[2019-01-25] MEDS ORDERED: Ketorolac 0.5% OPHTH (NF) 0.5 % 5 ML BTL ONE (09:48)
[2019-01-25] MEDS ORDERED: Phenylephrine OPHTH SOL 2.5%* 2 ML ONE (09:48)
[2019-01-25] MEDS ORDERED: acetaZOLAMIDE TAB* 250 MG ONE (09:48)
[2019-01-25] MEDS ORDERED: Lidocaine 1% MPF ** 5 ML VIAL ONE (09:48)
[2019-01-25] MEDS ORDERED: Neomycin/Polymy/Dex OPTH.SUSP* MAXITROL 0.1% 5 ML ONE (09:48)
[2019-01-25] MEDS ORDERED: Proparacaine 0.5% OPHTH.SOL* 15 ML BTL ONE (09:48)
[2019-01-25] MEDS ORDERED: Cyclopentolate 1% OPTH.SOL* 2 ML BTL ONE (09:48)
[2019-01-25] MEDS ORDERED: Lidocaine 2% w/ EPI 1:200,000* 20 ML SDV VIAL ONE (09:48)
[2019-01-25] MEDS ORDERED: Povidone Iodine 5% OPTH* 30 ML BTL ONE (09:48)
--- NOTE | 2019-01-25 10:17 | OP ---
OPERATIVE NOTE: DATE OF OPERATION: 01/25/19 DATE OF : 54 SURGEON: Jeremias Egan M.D. PREOPERATIVE DIAGNOSIS: Cataract, left eye. POSTOPERATIVE DIAGNOSIS: Cataract, left eye. OPERATIVE PROCEDURE: Extracapsular cataract extraction with intraocular lens implant, left eye. PROCEDURE IN DETAIL: The patient was brought to the operating room after being given 1/2% Alcaine wi th epinephrine drops in the preoperative area. The eye was prepped and draped in the usual sterile f ashion. Sterile drape and eyelid speculum were placed. Again, topical 1/2% Alcaine with epinephrine was given. A paracentesis incision was made at the 3 o'clock position with the No.75 blade. Clear c ornea incision 2.2 x 2.2-mm was created at the 6 o'clock position starting at the anterior limbus usi ng the 2.2-mm keratome. The anterior chamber was irrigated with 0.4 mL of 1% non-preservative intrac ameral lidocaine and filled with DisCoVisc. A capsulorrhexis was completed using the cystotome and t he Utrata forceps. Hydrodissection was performed with balanced salt solution. The lens nucleus was removed with the Phacoemulsification handpiece without incident. Cortex was removed with the irrigati on-aspiration handpiece. The capsular bag was re-inflated using DisCoVisc and an [id number] implant w as inserted with the shooter. The irrigation-aspiration handpiece was used to remove all residual Dis CoVisc. The eye was refilled with balanced salt solution and the wound checked and found to be water tight. Topical Maxitrol drops were given. [id number]/[facility] #: [id number]
== END 2019-01-25 09:10 | disposition home or self-care (01) ==
LOC: OREAST 06:40
PROVIDERS: ATTEND Specialist
DX: H25.812 Combined forms of age-related cataract, left eye (principal); E11.9 Type 2 diabetes mellitus without complications; Z79.84 Long term (current) use of oral hypoglycemic drugs; Z95.5 Presence of coronary angioplasty implant and graft; Z87.891 Personal history of nicotine dependence; I25.10 Atherosclerotic heart disease of native coronary artery without angina pectoris; G47.33 Obstructive sleep apnea (adult) (pediatric); I10 Essential (primary) hypertension; E78.00 Pure hypercholesterolemia, unspecified
CPT/HCPCS: A9270-GY; J2250; V2632

== ENCOUNTER 2023-02-23 15:58 | Inpatient (IN) ==
[2023-02-23 16:39] LABS: ABS Basophils 0.1 10^3/uL (0.0-0.1); ABS Eosinophils 0.2 10^3/uL (0.0-0.5); ABS Lymphocytes 2.9 10^3/uL (1.0-4.8); ABS Monocytes 0.9 10^3/uL (0.0-1.1); ABS Neutrophils 4.6 10^3/uL (1.5-7.6); ABS Nucleated RBC 0.02 10^3/ul; Eosinophil % 2.7 %; Hemoglobin 16.4 g/dL (13.2-16.3); Lymphocyte % 33.1 %; Mean Corpuscular Hemoglobin 31.2 pg (27-33); Mean Corpuscular Hgb Conc 35.7 g/dL (31-36); Mean Corpuscular Volume 87.5 fL (80-97); Nucleated Red Blood Cells % 0.2 /100 WBC (0.0-0.4); Platelet Count 268 10^3/uL (150-450); Red Blood Count 5.26 10^6/uL (4.06-5.63); Red Cell Distribution Width 12.3 % (12-17); White Blood Count 8.7 10^3/uL (3.6-10.2)
[2023-02-23 16:43] LABS: Albumin 4.8 g/dL (3.2-5.2); Calcium 9.8 mg/dL (8.6-10.3); Potassium 4.2 mmol/L (3.5-5.0); Total Bilirubin 0.6 mg/dL (0.2-1.0)
[2023-02-23] MEDS ORDERED: Heparin DRIP 25,000 UNITS BAG 25,000 UNITS/500 ML BAG IV SCH (16:45)
[2023-02-23 16:49] LABS: Creatinine, Serum 1.25 mg/dL (0.67-1.17); Globulin 2.4 g/dL (2-4); Total Protein 7.2 g/dL (6.4-8.9); eGFR CKD-EPI 61.6 (>60)
[2023-02-23 16:54] LABS: Activated Partial Thrombo Time 28.5 seconds (26.0-38.0); INR 0.85 (0.83-1.13)
[2023-02-23] MEDS ORDERED: Al Hydrox/Mg Hydrox/Simet LIQ 30 ML UDC PO PRN (17:15)
[2023-02-23] MEDS ORDERED: Dextrose 50% Syringe 50 ml 25 GM/50 ML SYRINGE IV PUSH PRN (17:24)
[2023-02-23] MEDS: Heparin 5000 UNITS/ML 1 mL VIAL IV SCH (17:27)
[2023-02-23 17:48] LABS: High Sensitivity Troponin 1 Hr 11 pg/mL (<20)
[2023-02-24] MEDS ORDERED: Heparin 5000 UNITS/ML 1 mL VIAL ONE (00:09)
[2023-02-24] MEDS: Heparin 5000 UNITS/ML 1 mL VIAL IV SCH (00:11)
[2023-02-24] MEDS ORDERED: NS 0.9% 1000 ml BAG 1,000 ML IV SCH ×2 (01:30→14:45)
[2023-02-24 06:37] LABS: ABS Basophils 0.1 10^3/uL (0.0-0.1); ABS Eosinophils 0.2 10^3/uL (0.0-0.5); ABS Lymphocytes 1.8 10^3/uL (1.0-4.8); ABS Monocytes 0.6 10^3/uL (0.0-1.1); ABS Neutrophils 3.5 10^3/uL (1.5-7.6); ABS Nucleated RBC 0.01 10^3/ul; Eosinophil % 3.9 %; Hematocrit 43.2 % (38-53); Hemoglobin 15.5 g/dL (13.2-16.3); Lymphocyte % 28.9 %; Mean Corpuscular Hemoglobin 31.1 pg (27-33); Mean Corpuscular Hgb Conc 35.9 g/dL (31-36); Mean Corpuscular Volume 86.6 fL (80-97); Mean Platelet Volume 7.6 fL (7.5-11.2); Nucleated Red Blood Cells % 0.2 /100 WBC (0.0-0.4); Platelet Count 229 10^3/uL (150-450); Red Blood Count 4.99 10^6/uL (4.06-5.63); Red Cell Distribution Width 12.3 % (12-17); White Blood Count 6.3 10^3/uL (3.6-10.2)
[2023-02-24 06:48] LABS: Activated Partial Thrombo Time 85.2 seconds (26.0-38.0); INR 1.08 (0.83-1.13)
[2023-02-24 07:04] LABS: Calcium 9.2 mg/dL (8.6-10.3); Creatinine, Serum 0.98 mg/dL (0.67-1.17); eGFR CKD-EPI 82.4 (>60)
[2023-02-24] MEDS: Aspirin EC 81 mg TAB.EC (enteric coated) PO SCH (08:34)
[2023-02-24] MEDS ORDERED: Heparin 1,000 UNIT/ML 10 ml (10,000 UNITS) CATHLAB/DIALYSIS ONE (13:09)
[2023-02-24] MEDS ORDERED: VERAPAMIL 2.5 MG/ML 2 ML VIAL ** 5 mg/2 ml ONE (13:09)
[2023-02-24] MEDS ORDERED: fentaNYL 100 mcg/2 ml 50 MCG/ML VIAL ONE (13:09)
[2023-02-24] MEDS ORDERED: Midazolam 5 mg/5 ml VIAL 1 mg/ml 5 ml VIAL (5 mg) ONE (13:09)
[2023-02-24] MEDS ORDERED: Lidocaine 1% MPF 5 ML VIAL ONE (13:10)
[2023-02-24] MEDS ORDERED: Heparin 2 UNITS/ML 1000 mls 2,000 ML IV ONE (13:10)
[2023-02-24] MEDS ORDERED: Iohexol 350 (CONTRAST) 200 ML MDV IV ONE (13:10)
[2023-02-24] MEDS ORDERED: nitroGLYCERIN DRIP 25,000 MCG/250 ML BTL ONE (13:10)
[2023-02-24] MEDS ORDERED: Bivalirudin 250 MG VIAL ONE (13:56)
[2023-02-24] MEDS ORDERED: Atropine 0.1 MG/ML 10 ml SYR (1 mg) ONE (13:56)
[2023-02-24 15:49] LABS: High Sensitivity Troponin 1 Hr 439 pg/mL (<20)
[2023-02-24] MEDS ORDERED: Dextrose 50% Syringe 50 ml 25 GM/50 ML SYRINGE IV PUSH PRN (18:22)
[2023-02-24 20:08] LABS: HDL Cholesterol 39.1 mg/dL
[2023-02-25 04:21] LABS: ABS Basophils 0.1 10^3/uL (0.0-0.1); ABS Eosinophils 0.2 10^3/uL (0.0-0.5); ABS Lymphocytes 1.3 10^3/uL (1.0-4.8); ABS Monocytes 0.8 10^3/uL (0.0-1.1); ABS Neutrophils 5.5 10^3/uL (1.5-7.6); ABS Nucleated RBC 0.01 10^3/ul; Eosinophil % 2.9 %; Hematocrit 42.9 % (38-53); Hemoglobin 15.5 g/dL (13.2-16.3); Lymphocyte % 16.1 %; Mean Corpuscular Hgb Conc 36.2 g/dL (31-36); Mean Corpuscular Volume 85.6 fL (80-97); Mean Platelet Volume 7.7 fL (7.5-11.2); Nucleated Red Blood Cells % 0.1 /100 WBC (0.0-0.4); Platelet Count 236 10^3/uL (150-450); Red Blood Count 5.02 10^6/uL (4.06-5.63); Red Cell Distribution Width 12.7 % (12-17); White Blood Count 7.9 10^3/uL (3.6-10.2)
[2023-02-25 04:39] LABS: Calcium 9.5 mg/dL (8.6-10.3); Creatinine, Serum 0.92 mg/dL (0.67-1.17); Potassium 3.9 mmol/L (3.5-5.0); eGFR CKD-EPI 88.9 (>60)
[2023-02-25] MEDS: Aspirin EC 81 mg TAB.EC (enteric coated) PO SCH (08:35)
[2023-02-25 12:15] VITALS: BP 138/77
== END 2023-02-25 12:16 | disposition home or self-care (01) | DRG 174 ==
LOC: ED 15:58 → SUATTDRO 17:15 → EDHOLD 17:15 → ICU 02-24 14:56
PROVIDERS: ADMIT Internal Medicine; ATTEND Internal Medicine Critical Care Medicine